=== PATIENT | male | born 1970 | race Caucasian/White ===

== ENCOUNTER 2018-07-08 18:30 | Inpatient (IN) | payer MEDICAID ==
[2018-07-08] MEDS ORDERED: Ketorolac 30 MG/ML SDV IVPUSH ONE (18:32)
[2018-07-08] MEDS ORDERED: Nitroglycerin 2% Oint 1 GM UD Packet TOP ONE (18:32)
--- NOTE | 2018-07-08 18:44 | EDM.PDOC ---
ED HPI GENERAL MEDICAL PROBLEM - General Chief Complaint: Chest Pain Stated Complaint: CHEST PAINS Time Seen by Provider: 07/08/18 18:39 Source of Information: Reports: Patient History Limitations: Reports: No Limitations - History of Present Illness INITIAL COMMENTS - FREE TEXT/NARRATIVE: HISTORY AND PHYSICAL: History of present illness: Patient is a 47-year-old male who presents to the emergency room today with complaints of midsternal chest pain for the last one and a half hours. Patient reports that he is under a lot of stress recently as he came to [place] from [place]. Moved here a month ago for work, but was laid off recently. Currently is homeless and has been wandering the streets for the past several weeks. States he has had multiple bouts of diarrhea this past week. Has noticed that the os lower extremities have been swollen. He believes this is due to the frequent and constant walking he has been doing. He denies any fever, chills, shortness of breath or cough. Denies any abdominal pain, nausea, vomiting, constipation or dysuria Medical history of hypertension. He states he is a daily drinker, 1/5th of hard alcohol daily. 1 1/2 Pack per day smoker. Review of systems: As per history of present illness and below otherwise all systems reviewed and negative. Past medical history: As per history of present illness and as reviewed below otherwise noncontributory. Surgical history: As per history of present illness and as reviewed below otherwise noncontributory. Social history: No reported history of drug or alcohol abuse. Family history: As per history of present illness and as reviewed below otherwise noncontributory. Physical exam: General: Well-developed and well-nourished 47-year-old male. Alert and oriented. Nontoxic appearing and in no acute distress. HEENT: Atraumatic, normocephalic, pupils equal and reactive bilaterally, negative for conjunctival pallor or scleral icterus, mucous membranes moist, throat clear, neck supple, nontender, trachea midline. No drooling or trismus noted. No meningeal signs Lungs: Clear to auscultation, breath sounds equal bilaterally, chest nontender. Heart: S1S2, regular rate and rhythm without overt murmur Abdomen: Soft, nondistended, nontender. Negative for masses or hepatosplenomegaly. Negative for costovertebral tenderness. Pelvis: Stable nontender. Genitourinary: Deferred. Rectal: Deferred. Skin: Intact, warm, dry. No lesions or rashes noted. Extremities: Atraumatic, moves all per self, negative for cords or calf pain. + 2 pitting edema to bilateral LE. Strong pedal pulses bilaterally. Cap refill less than 3 seconds. Neurovascular unremarkable. Neuro: Awake, alert, oriented. Cranial nerves II through XII unremarkable. Cerebellum unremarkable. Motor and sensory unremarkable throughout. Exam nonfocal. Notes: Patient had 4 baby aspirin and 2 sprays of nitroglycerin prior to arrival. Pain went from a 7/10 to a 2/10. Troponin negative. Chest x-ray within normal limits. EKG unremarkable, no previous EKG for Laws. Patient's hemoglobin is 10.4. Potassium 2.8 and an alcohol level of 296. Patient's pain is a 0 out of 10. We did discuss admission which he would prefer. Vital signs are stable. Dr. Espinoza was consulted on this case. Diagnostics: CBC, CMP, troponin, BNP, chest x-ray, EKG Therapeutics: Nitroglycerin topical, Toradol, Banana bag, K-Dur Impression: Chest Pain r/o MD Hypokalemia Diarrhea Plan: Observation to Med/Surg with telemetry Definitive disposition and diagnosis as appropriate pending reevaluation and review of above. Onset: Today Onset Date: 07/08/18 Onset Time: 17:00 Location: Reports: Chest Mid-Sternal Chest Pain Score (Numeric/FACES): 2 - Related Data Allergies Allergy/AdvReac Type Severity Reaction Status Date / Time No Known Allergies Allergy Verified 07/08/18 18:39 Home Meds: Home Meds Lisinopril [Zestril] 40 mg PO DAILY 07/08/18 [History] Past Medical History HEENT History: Reports: None Cardiovascular History: Reports: None Respiratory History: Reports: None Gastrointestinal History: Reports: None Genitourinary History: Reports: None Musculoskeletal History: Reports: None Neurological History: Reports: None Psychiatric History: Reports: None Endocrine/Metabolic History: Reports: None Hematologic History: Reports: None Immunologic History: Reports: None Oncologic (Cancer) History: Reports: None Dermatologic History: Reports: None - Infectious Disease History Infectious Disease History: Reports: None - Past Surgical History Head Surgeries/Procedures: Reports: None Social & Family History - Caffeine Use Caffeine Use: Reports: None ED ROS GENERAL - Review of Systems Review Of Systems: ROS reveals no pertinent complaints other than HPI. ED EXAM, GENERAL - Physical Exam Exam: See Below (See dictation) Course - Vital Signs Last Recorded V/S: Last Vital Signs Temp 98.4 F 07/08/18 18:32 Pulse 111 H 07/08/18 18:32 Resp 18 07/08/18 18:32 BP 130/88 07/08/18 18:32 Pulse Ox 94 L 07/08/18 18:32 - Orders/Labs/Meds Orders: Active Orders 24 hr Category Date Time Status Patient Status [ADT] Stat ADT 07/08/18 20:37 Ordered EKG Documentation Completion [RC] STAT Care 07/08/18 18:32 Active Chest 1V Frontal [CR] Stat Exams 07/08/18 18:32 Taken CULTURE STOOL + CAMPY+SHIGATOX [RM] Stat Lab 07/08/18 20:11 Ordered UA W/MICROSCOPIC [URIN] Stat Lab 07/08/18 20:12 Ordered MVI, Adult with Vitamin K [Infuvite Adult] 10 ml Med 07/08/18 20:07 Active Thiamine [Vitamin B-1] 100 mg Folic Acid 1 mg Sodium Chloride 0.9% [Normal Saline] 1,000 ml IV ONETIME Medication Orders Multivitamins/Minerals 10 ml/Thiamine HCl 100 mg/ Folic Acid 1 mg/ Sodium Chloride 1,011.2 mls @ 250 mls/hr IV ONETIME ONE Stop: 07/09/18 00:09 Labs: Laboratory Tests 07/08/18 07/08/18 07/08/18 Range/Units 18:49 18:49 18:49 WBC 4.84 (4.0-11.0) K/uL RBC 3.30 L (4.50-5.90) M/uL Hgb 10.4 L (13.0-17.0) g/dL Hct 30.3 L (38.0-50.0) % MCV 91.8 (80.0-98.0) fL MCH 31.5 (27.0-32.0) pg MCHC 34.3 (31.0-37.0) g/dL RDW Std Deviation 62.5 H (28.0-62.0) fl RDW Coeff of Michelle 19 H (11.0-15.0) % Plt Count 213 (150-400) K/uL MPV 8.70 (7.40-12.00) fL Neut % (Auto) 54.5 (48.0-80.0) % Lymph % (Auto) 32.9 (16.0-40.0) % Jerome % (Auto) 8.9 (0.0-15.0) % Eos % (Auto) 2.9 (0.0-7.0) % Baso % (Auto) 0.8 (0.0-1.5) % Neut # (Auto) 2.6 (1.4-5.7) K/uL Lymph # (Auto) 1.6 (0.6-2.4) K/uL Jerome # (Auto) 0.4 (0.0-0.8) K/uL Eos # (Auto) 0.1 (0.0-0.7) K/uL Baso # (Auto) 0.0 (0.0-0.1) K/uL Nucleated RBC % 0.0 /100WBC Nucleated RBCs # 0 K/uL Sodium 145 (136-148) mmol/L Potassium 2.8 L (3.5-5.1) mmol/L Chloride 107 (98-107) mmol/L Carbon Dioxide 25.1 (21.0-32.0) mmol/L BUN 8 (7.0-18.0) mg/dL Creatinine 0.9 (0.8-1.3) mg/dL Est Cr Clr Drug Dosing TNP Estimated GFR (MDRD) > 60.0 ml/min Glucose 93 (74-106) mg/dL Calcium 8.0 L (8.5-10.1) mg/dL Total Bilirubin 0.4 (0.2-1.0) mg/dL AST 57 H (15-37) IU/L ALT 60 (14-63) IU/L Alkaline Phosphatase 179 H (46-116) U/L Troponin I < 0.050 (0.000-0.056) ng/mL B-Natriuretic Peptide 67 (<100) PG/ML Total Protein 6.3 L (6.4-8.2) g/dL Albumin 3.2 L (3.4-5.0) g/dL Globulin 3.1 (2.0-3.5) g/dL Albumin/Globulin Ratio 1.0 L (1.3-2.8) Ethyl Alcohol mg/dL 07/08/18 Range/Units 18:49 WBC (4.0-11.0) K/uL RBC (4.50-5.90) M/uL Hgb (13.0-17.0) g/dL Hct (38.0-50.0) % MCV (80.0-98.0) fL MCH (27.0-32.0) pg MCHC (31.0-37.0) g/dL RDW Std Deviation (28.0-62.0) fl RDW Coeff of Michelle (11.0-15.0) % Plt Count (150-400) K/uL MPV (7.40-12.00) fL Neut % (Auto) (48.0-80.0) % Lymph % (Auto) (16.0-40.0) % Jerome % (Auto) (0.0-15.0) % Eos % (Auto) (0.0-7.0) % Baso % (Auto) (0.0-1.5) % Neut # (Auto) (1.4-5.7) K/uL Lymph # (Auto) (0.6-2.4) K/uL Jerome # (Auto) (0.0-0.8) K/uL Eos # (Auto) (0.0-0.7) K/uL Baso # (Auto) (0.0-0.1) K/uL Nucleated RBC % /100WBC Nucleated RBCs # K/uL Sodium (136-148) mmol/L Potassium (3.5-5.1) mmol/L Chloride (98-107) mmol/L Carbon Dioxide (21.0-32.0) mmol/L BUN (7.0-18.0) mg/dL Creatinine (0.8-1.3) mg/dL Est Cr Clr Drug Dosing Estimated GFR (MDRD) ml/min Glucose (74-106) mg/dL Calcium (8.5-10.1) mg/dL Total Bilirubin (0.2-1.0) mg/dL AST (15-37) IU/L ALT (14-63) IU/L Alkaline Phosphatase (46-116) U/L Troponin I (0.000-0.056) ng/mL B-Natriuretic Peptide (<100) PG/ML Total Protein (6.4-8.2) g/dL Albumin (3.4-5.0) g/dL Globulin (2.0-3.5) g/dL Albumin/Globulin Ratio (1.3-2.8) Ethyl Alcohol 296 mg/dL Meds: Medications Generic Name Dose Route Start Last Admin Trade Name Seanq PRN Reason Stop Dose Admin Multivitamins/Minerals 10 ml/ 1,011.2 mls @ 250 mls/hr 07/08/18 20:07 Thiamine HCl 100 mg/ Folic IV 07/09/18 00:09 Acid 1 mg/ Sodium Chloride ONETIME ONE Discontinued Medications Generic Name Dose Route Start Last Admin Trade Name Freq PRN Reason Stop Dose Admin Ketorolac Tromethamine 30 mg 07/08/18 18:32 07/08/18 18:46 Toradol IVPUSH 07/08/18 18:33 30 mg ONETIME ONE Administration Nitroglycerin 1 gm 07/08/18 18:32 Nitro-Bid 2% TOP 07/08/18 18:33 ONETIME ONE Potassium Chloride 40 meq 07/08/18 20:07 07/08/18 20:20 Klor-Con M20 PO 07/08/18 20:08 40 meq ONETIME ONE Administration Departure - Departure Time of Disposition: 20:39 Disposition: Refer to Observation Clinical Impression: Hypokalemia Chest pain Qualifiers: Chest pain type: unspecified Qualified Code(s): R07.9 - Chest pain, unspecified Diarrhea Qualifiers: Diarrhea type: unspecified type Qualified Code(s): R19.7 - Diarrhea, unspecified Instructions: Chest Wall Pain, [id number] Forms: ED Department Discharge - My Orders Last 24 Hours: My Active Orders 07/08/18 18:32 EKG Documentation Completion [RC] STAT Chest 1V Frontal [CR] Stat 07/08/18 20:07 MVI, Adult with Vitamin K [Infuvite Adult] 10 ml Thiamine [Vitamin B-1] 100 mg Folic Acid 1 mg Sodium Chloride 0.9% [Normal Saline] 1,000 ml IV ONETIME 07/08/18 20:11 CULTURE STOOL + CAMPY+SHIGATOX [RM] Stat 07/08/18 20:12 UA W/MICROSCOPIC [URIN] Stat 07/08/18 20:37 Patient Status [ADT] Stat - Assessment/Plan Last 24 Hours: My Active Orders 07/08/18 18:32 EKG Documentation Completion [RC] STAT Chest 1V Frontal [CR] Stat 07/08/18 20:07 MVI, Adult with Vitamin K [Infuvite Adult] 10 ml Thiamine [Vitamin B-1] 100 mg Folic Acid 1 mg Sodium Chloride 0.9% [Normal Saline] 1,000 ml IV ONETIME 07/08/18 20:11 CULTURE STOOL + CAMPY+SHIGATOX [RM] Stat 07/08/18 20:12 UA W/MICROSCOPIC [URIN] Stat 07/08/18 20:37 Patient Status [ADT] Stat
[2018-07-08 19:19] LABS: CHLORIDE,CL 107 mmol/L (98-107); SODIUM,NA 145 mmol/L (136-148)
[2018-07-08] MEDS ORDERED: MVI, Adult with Vitamin K 10 ML, Thiamine 100 MG, Folic Acid 1 MG in Sodium Chloride 0.... IV ONE ×4 (20:07)
[2018-07-08] MEDS ORDERED: Potassium Chloride 20 MEQ Tab.ER PO ONE ×2 (20:07→23:05)
[2018-07-08] MEDS ORDERED: Folic Acid 1 MG Tab PO ONE (22:54)
[2018-07-08] MEDS ORDERED: Thiamine 100 MG Tab PO ONE (22:54)
[2018-07-08] MEDS ORDERED: LORazepam 2 MG/ML SDV IVPUSH PRN (23:02)
[2018-07-08] MEDS ORDERED: Magnesium Sulfate/Water 2 GM in Premix Bag 1 BAG IV ONE (23:25)
[2018-07-09 07:14] LABS: CHLORIDE,CL 102 mmol/L (98-107); SODIUM,NA 138 mmol/L (136-148)
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
[2018-07-09] MEDS ORDERED: Magnesium Sulfate/Water 2 GM in Premix Bag 1 BAG IV ONE (07:44)
[2018-07-09] MEDS ORDERED: Potassium Chloride 20 MEQ Tab.ER PO ONE (07:44)
[2018-07-09] MEDS ORDERED: LORazepam 1 MG Tab PO PRN (07:58)
[2018-07-09] MEDS: Enoxaparin 40 MG/0.4 ML Syringe SUBCUT SCH (08:17)
[2018-07-09] MEDS: LORazepam 2 MG/ML SDV IVPUSH PRN (09:55)
--- NOTE | 2018-07-09 10:45 | CR ---
EXAM DATE: 07/08/18 PATIENT'S AGE: 47 Patient: KEKE VELASCO Facility: [place], [place] Site . Site : 1970 Study: XRay Chest [id number] 7:22:42 PM Ordering Physician: Doctor Luna Final Report: INDICATION: Chest pain TECHNIQUE: Chest radiograph 1 views on 2 films COMPARISON: None FINDINGS: Mediastinum: The mediastinum is normal in appearance. The heart silhouette is normal in size and morphology. Lung: Both lungs are unremarkable in appearance. No sign of pleural effusion seen. No pneumothorax is identified. Musculoskeletal: Unremarkable for age. IMPRESSION: 1. No acute cardiopulmonary disease is seen. Dictated by: Drake Campos MD @ 07/08/2018 19:30:34 (Electronic Signature) Report Signed by Proxy. [facility]ITAL[facility]
[2018-07-09] MEDS: Nicotine 14 MG/24 Hr Patch TRDERM SCH (11:38)
[2018-07-09] MEDS: Sodium Chloride 0.9% 1,000 ML IV SCH ×2 (11:39→21:01)
[2018-07-09] MEDS: Vancomycin 25 MG/ML Compounding Kit PO SCH ×3 (16:09→23:39)
[2018-07-09] MEDS: Acetaminophen 325 MG Tab PO PRN (17:38)
[2018-07-09] MEDS: Multivitamin Tab PO SCH (21:02)
[2018-07-09] MEDS: Folic Acid 1 MG Tab PO SCH (21:03)
[2018-07-09] MEDS: Thiamine 100 MG Tab PO SCH (21:03)
[2018-07-09] MEDS ORDERED: Ondansetron 4 MG/2 ML SDV IVPUSH PRN (23:48)
[2018-07-10] MEDS: Acetaminophen 325 MG Tab PO PRN ×3 (00:27→18:18)
[2018-07-10] MEDS: Sodium Chloride 0.9% 1,000 ML IV SCH ×2 (05:24→13:28)
[2018-07-10] MEDS: Vancomycin 25 MG/ML Compounding Kit PO SCH ×3 (05:35→18:17)
[2018-07-10 05:51] LABS: CHLORIDE,CL 106 mmol/L (98-107); SODIUM,NA 141 mmol/L (136-148)
--- NOTE | 2018-07-10 09:14 | PCM.PN ---
- General Info Date of Service: 07/10/18 Subjective Update: The patient is a 47-year-old male who was originally admitted for chest pain and ACS rule out. Since admission, he has not had any episodes of chest pain. He also has been a daily drinker and is requesting detox. He is not showing any signs of withdrawal yet. The patient was having multiple episodes of diarrhea daily, so a stool studies and C. difficile were performed yesterday. The patient is positive for C. difficile has been started on oral antibiotics. The patient is complaining of lower extremitiy edema. He states he is eating, drinking, and going to the bathroom without difficulty. He is still having multiple episodes of diarrhea daily. Denied any blood in stool. Denies any chest pain, shortness of breath, or abdominal pain. - Review of Systems General: Reports: No Symptoms HEENT: Reports: No Symptoms Pulmonary: Reports: No Symptoms Cardiovascular: Reports: No Symptoms Gastrointestinal: Reports: Diarrhea. Denies: Abdominal Pain, Constipation, Decreased Appetite, Nausea, Vomiting Genitourinary: Reports: No Symptoms Musculoskeletal: Reports: Leg Pain Skin: Reports: No Symptoms Neurological: Reports: No Symptoms Psychiatric: Reports: No Symptoms - Patient Data Vitals - Most Recent: Last Vital Signs Temp 97.9 F 07/10/18 04:00 Pulse 72 07/10/18 04:00 Resp 18 07/10/18 04:00 BP 139/83 07/10/18 04:00 Pulse Ox 95 07/10/18 04:00 Weight - Most Recent: 92.079 kg I&O - Last 24 Hours: Intake & Output 07/09/18 07/10/18 07/10/18 22:59 06:59 14:59 Intake Total 3100 1040 Output Total 950 1380 Balance 2150 -340 Lab Results Last 24 Hours: Laboratory Results - last 24 hr 07/09/18 07/10/18 07/10/18 Range/Units 12:25 05:00 05:00 WBC 4.79 (4.0-11.0) K/uL RBC 2.84 L (4.50-5.90) M/uL Hgb 8.8 L (13.0-17.0) g/dL Hct 26.8 L (38.0-50.0) % MCV 94.4 (80.0-98.0) fL MCH 31.0 (27.0-32.0) pg MCHC 32.8 (31.0-37.0) g/dL RDW Std Deviation 63.1 H (28.0-62.0) fl RDW Coeff of Michelle 18 H (11.0-15.0) % Plt Count 151 (150-400) K/uL MPV 9.80 (7.40-12.00) fL Neut % (Auto) 61.6 (48.0-80.0) % Lymph % (Auto) 28.6 (16.0-40.0) % Davidson % (Auto) 5.8 (0.0-15.0) % Eos % (Auto) 3.8 (0.0-7.0) % Baso % (Auto) 0.2 (0.0-1.5) % Neut # (Auto) 3.0 (1.4-5.7) K/uL Lymph # (Auto) 1.4 (0.6-2.4) K/uL Davidson # (Auto) 0.3 (0.0-0.8) K/uL Eos # (Auto) 0.2 (0.0-0.7) K/uL Baso # (Auto) 0.0 (0.0-0.1) K/uL Nucleated RBC % 0.0 /100WBC Nucleated RBCs # 0 K/uL Sodium 141 (136-148) mmol/L Potassium 3.7 (3.5-5.1) mmol/L Chloride 106 (98-107) mmol/L Carbon Dioxide 24.7 (21.0-32.0) mmol/L BUN 11 (7.0-18.0) mg/dL Creatinine 0.8 (0.8-1.3) mg/dL Est Cr Clr Drug Dosing 137.16 mL/min Estimated GFR (MDRD) > 60.0 ml/min Glucose 97 (74-106) mg/dL Calcium 8.2 L (8.5-10.1) mg/dL Magnesium 2.1 (1.8-2.4) mg/dL Total Bilirubin 0.5 (0.2-1.0) mg/dL AST 66 H (15-37) IU/L ALT 59 (14-63) IU/L Alkaline Phosphatase 147 H (46-116) U/L Total Protein 5.4 L (6.4-8.2) g/dL Albumin 2.7 L (3.4-5.0) g/dL Globulin 2.7 (2.0-3.5) g/dL Albumin/Globulin Ratio 1.0 L (1.3-2.8) Michel Results Last 24 Hours: Microbiology 07/09/18 12:15 Clostridium difficile Toxin A & B - Final Stool / Feces Positive C. Diff Antigen Stool for WBCs - Final NEGATIVE FOR WBC'S 07/09/18 12:15 Campylobacter Antigen Assay - Final Stool / Feces NEGATIVE [facility] Med Orders - Current: Current Medications Acetaminophen (Tylenol) 650 mg PO Q4H PRN PRN Reason: Pain (Mild 1-3)/fever Last Admin: 07/10/18 00:27 Dose: 650 mg Enoxaparin Sodium (Lovenox) 40 mg SUBCUT Q24H [facility] Last Admin: 07/09/18 08:17 Dose: 40 mg Folic Acid (Folic Acid) 1 mg PO BEDTIME [facility]AVIN Last Admin: 07/09/18 21:03 Dose: 1 mg Sodium Chloride (Normal Saline) 1,000 mls @ 125 mls/hr IV ASDIRECTED [facility] Last Admin: 07/10/18 05:24 Dose: 125 mls/hr Lorazepam (Ativan) 0 mg PO Q4H PRN; Protocol PRN Reason: Withdrawal Symptoms Lorazepam (Ativan) 0 mg IVPUSH Q4H PRN; Protocol PRN Reason: Withdrawal Symptoms Last Admin: 07/09/18 09:55 Dose: 1 mg Multivitamins/Minerals/Vitamin C (Tab-A-Marva) 1 tab PO BEDTIME [facility]IN Last Admin: 07/09/18 21:02 Dose: 1 tab Nicotine (Habitrol) 14 mg TRDERM Q24H [facility] Last Admin: 07/09/18 11:38 Dose: 14 mg Ondansetron HCl (Zofran) 4 mg IVPUSH Q3H PRN PRN Reason: Nausea Last Admin: 07/10/18 00:26 Dose: 4 mg Thiamine HCl (Vitamin B-1) 100 mg PO BEDTIME BHAVIN Last Admin: 07/09/18 21:03 Dose: 100 mg Vancomycin HCl (Pharmacy To Dose - Vancomycin) 1 dose .XX ASDIRECTED [facility] Vancomycin HCl (First-Vancomycin 25 Compounding Kit) 125 mg PO QID [facility]IN Last Admin: 07/10/18 05:35 Dose: 5 ml Discontinued Medications Folic Acid (Folic Acid) 1 mg PO ONETIME ONE Stop: 07/08/18 22:55 Last Admin: 07/08/18 23:27 Dose: 1 mg Multivitamins/Minerals 10 ml/Thiamine HCl 100 mg/ Folic Acid 1 mg/ Sodium Chloride 1,011.2 mls @ 250 mls/hr IV ONETIME ONE Stop: 07/09/18 00:09 Last Admin: 07/08/18 21:16 Dose: 250 mls/hr Magnesium Sulfate 2 gm/ Premix 50 mls @ 50 mls/hr IV ONETIME ONE Stop: 07/09/18 00:24 Last Admin: 07/08/18 23:44 Dose: 50 mls/hr Magnesium Sulfate 2 gm/ Premix 50 mls @ 50 mls/hr IV ONETIME ONE Stop: 07/09/18 08:43 Last Admin: 07/09/18 08:17 Dose: 50 mls/hr Vancomycin HCl 1,500 mg/ (Sodium Chloride) 500 mls @ 1,000 mls/hr IV Q8H [facility] Vancomycin HCl 1,500 mg/ (Sodium Chloride) 500 mls @ 250 mls/hr IV Q8H [facility] Last Admin: 07/09/18 15:19 Dose: 250 mls/hr Ketorolac Tromethamine (Toradol) 30 mg IVPUSH ONETIME ONE Stop: 07/08/18 18:33 Last Admin: 07/08/18 18:46 Dose: 30 mg Lorazepam (Ativan) 1 mg IVPUSH Q4H PRN; Protocol PRN Reason: Anxiety Last Admin: 07/08/18 23:36 Dose: 1 mg Nitroglycerin (Nitro-Bid 2%) 1 gm TOP ONETIME ONE Stop: 07/08/18 18:33 Last Admin: 07/08/18 21:15 Dose: Not Given Potassium Chloride (Klor-Con M20) 40 meq PO ONETIME ONE Stop: 07/08/18 20:08 Last Admin: 07/08/18 20:20 Dose: 40 meq Potassium Chloride (Klor-Con M20) 40 meq PO ONETIME ONE Stop: 07/08/18 23:06 Last Admin: 07/08/18 23:27 Dose: 40 meq Potassium Chloride (Klor-Con M20) 40 meq PO ONETIME ONE Stop: 07/09/18 07:45 Last Admin: 07/09/18 08:18 Dose: 40 meq Thiamine HCl (Vitamin B-1) 100 mg PO ONETIME ONE Stop: 07/08/18 22:55 Last Admin: 07/08/18 23:27 Dose: 100 mg - Exam General: Alert, Oriented, Cooperative, No Acute Distress Lungs: Normal Respiratory Effort, Wheezing Cardiovascular: Regular Rate, Regular Rhythm GI/Abdominal Exam: Normal Bowel Sounds, Soft, Non-Tender Extremities: Other (edema bilaterally up to knees) Skin: Warm, Dry Neurological: No New Focal Deficit Psy/Mental Status: Alert, Normal Affect, Normal Mood - Problem List Review Problem List Initiated/Reviewed/Updated: Yes - My Orders Last 24 Hours: My Active Orders 07/09/18 10:45 Sodium Chloride 0.9% [Normal Saline] 1,000 ml IV ASDIRECTED 07/09/18 11:00 Nicotine [Habitrol] 14 mg TRDERM Q24H 07/09/18 12:15 CULTURE STOOL + CAMPY+SHIGATOX [RM] Routine 07/09/18 15:00 Vancomycin Pharmacy to Dose [Pharmacy to Dose - Vancomycin] 1 dose .XX ASDIRECTED 07/09/18 19:23 Admission Status [Patient Status] [ADT] Routine 07/09/18 21:00 Folic Acid 1 mg PO BEDTIME Multivitamins [Tab-A-Marva] 1 tab PO BEDTIME Thiamine [Vitamin B-1] 100 mg PO BEDTIME - Plan Plan:: 1. Diarrhea secondary to C.diff infection- continue oral vancomycin 125 mg qid. Other stool studies still pending. Will add hemoccult testing. 2. Alcohol Intoxication with impending withdrawal- CIWA and Ativan protocol. Continue on multivitamin, folic acid, and thiamine. Continue IV fluids. 3. Hypokalemia- resolved 4. Hypomagnesemia-resolved
[2018-07-10] MEDS: Nicotine 14 MG/24 Hr Patch TRDERM SCH (10:28)
[2018-07-10] MEDS: Enoxaparin 40 MG/0.4 ML Syringe SUBCUT SCH (10:28)
[2018-07-10] MEDS: Pantoprazole 40 MG Vial IVPUSH SCH ×2 (18:16→20:57)
[2018-07-10] MEDS ORDERED: traMADol 50 MG Tab PO ONE (18:51)
[2018-07-10] MEDS: Thiamine 100 MG Tab PO SCH (20:51)
[2018-07-10] MEDS: Melatonin 3 MG Tab PO SCH (20:51)
[2018-07-10] MEDS: Multivitamin Tab PO SCH (20:51)
[2018-07-10] MEDS: Folic Acid 1 MG Tab PO SCH (20:51)
[2018-07-10] MEDS ORDERED: Pantoprazole 40 MG Vial IVPUSH SCH (21:00)
[2018-07-11] MEDS: Acetaminophen 325 MG Tab PO PRN ×3 (00:49→23:04)
[2018-07-11] MEDS: Vancomycin 25 MG/ML Compounding Kit PO SCH ×4 (00:50→17:52)
[2018-07-11 05:41] LABS: CHLORIDE,CL 106 mmol/L (98-107); SODIUM,NA 140 mmol/L (136-148)
--- NOTE | 2018-07-11 08:28 | PCM.PN ---
- General Info Date of Service: 07/11/18 Subjective Update: The patient is a 47 year old male admitted for detox and was found to be positive for C.diff. He has not needed any ativan for withdrawals yet. He is having 10+ bowel movements a day due to his C.diff. He did report one episode of black stool yesterday and was hemoccult positive. He has not had any further episode of black stools or bright red blood per rectum. His hemoglobin was stable overnight. He denies issues eating or drinking. He denies chest pain , shortness of breath, or abdominal pain. - Review of Systems General: Reports: No Symptoms HEENT: Reports: No Symptoms Pulmonary: Reports: No Symptoms Cardiovascular: Reports: No Symptoms Gastrointestinal: Reports: Diarrhea. Denies: Abdominal Pain, Nausea, Vomiting Genitourinary: Reports: No Symptoms Musculoskeletal: Reports: Leg Pain Skin: Reports: No Symptoms Neurological: Reports: No Symptoms Psychiatric: Reports: No Symptoms - Patient Data Vitals - Most Recent: Last Vital Signs Temp 97.2 F 07/11/18 06:21 Pulse 82 07/11/18 06:21 Resp 20 07/11/18 06:21 BP 177/98 H 07/11/18 06:21 Pulse Ox 97 07/11/18 06:21 Weight - Most Recent: 92.079 kg I&O - Last 24 Hours: Intake & Output 07/10/18 07/11/18 07/11/18 22:59 06:59 14:59 Intake Total 3589 1380 Output Total 880 350 Balance 2709 1030 Lab Results Last 24 Hours: Laboratory Results - last 24 hr 07/10/18 07/11/18 07/11/18 Range/Units 18:01 04:50 04:50 WBC 6.76 (4.0-11.0) K/uL RBC 2.89 L (4.50-5.90) M/uL Hgb 8.9 L 9.0 L (13.0-17.0) g/dL Hct 27.1 L 27.7 L (38.0-50.0) % MCV 95.8 (80.0-98.0) fL MCH 31.1 (27.0-32.0) pg MCHC 32.5 (31.0-37.0) g/dL RDW Std Deviation 63.3 H (28.0-62.0) fl RDW Coeff of Michelle 18 H (11.0-15.0) % Plt Count 146 L (150-400) K/uL MPV 9.70 (7.40-12.00) fL Neut % (Auto) 72.6 (48.0-80.0) % Lymph % (Auto) 18.3 (16.0-40.0) % Quay % (Auto) 5.0 (0.0-15.0) % Eos % (Auto) 4.0 (0.0-7.0) % Baso % (Auto) 0.1 (0.0-1.5) % Neut # (Auto) 4.9 (1.4-5.7) K/uL Lymph # (Auto) 1.2 (0.6-2.4) K/uL Quay # (Auto) 0.3 (0.0-0.8) K/uL Eos # (Auto) 0.3 (0.0-0.7) K/uL Baso # (Auto) 0.0 (0.0-0.1) K/uL Nucleated RBC % 0.0 /100WBC Nucleated RBCs # 0 K/uL Sodium 140 (136-148) mmol/L Potassium 3.9 (3.5-5.1) mmol/L Chloride 106 (98-107) mmol/L Carbon Dioxide 25.5 (21.0-32.0) mmol/L BUN 11 (7.0-18.0) mg/dL Creatinine 0.9 (0.8-1.3) mg/dL Est Cr Clr Drug Dosing 121.92 mL/min Estimated GFR (MDRD) > 60.0 ml/min Glucose 93 (74-106) mg/dL Calcium 8.3 L (8.5-10.1) mg/dL Iron (50-175) ug/dL TIBC (250-450) ug/dL % Saturation (20-55) % Ferritin (26-388) ng/mL Total Bilirubin 0.6 (0.2-1.0) mg/dL AST 48 H (15-37) IU/L ALT 63 (14-63) IU/L Alkaline Phosphatase 150 H (46-116) U/L Total Protein 5.7 L (6.4-8.2) g/dL Albumin 2.8 L (3.4-5.0) g/dL Globulin 2.9 (2.0-3.5) g/dL Albumin/Globulin Ratio 1.0 L (1.3-2.8) 07/11/18 Range/Units 07:30 WBC (4.0-11.0) K/uL RBC (4.50-5.90) M/uL Hgb (13.0-17.0) g/dL Hct (38.0-50.0) % MCV (80.0-98.0) fL MCH (27.0-32.0) pg MCHC (31.0-37.0) g/dL RDW Std Deviation (28.0-62.0) fl RDW Coeff of Michelle (11.0-15.0) % Plt Count (150-400) K/uL MPV (7.40-12.00) fL Neut % (Auto) (48.0-80.0) % Lymph % (Auto) (16.0-40.0) % Quay % (Auto) (0.0-15.0) % Eos % (Auto) (0.0-7.0) % Baso % (Auto) (0.0-1.5) % Neut # (Auto) (1.4-5.7) K/uL Lymph # (Auto) (0.6-2.4) K/uL Quay # (Auto) (0.0-0.8) K/uL Eos # (Auto) (0.0-0.7) K/uL Baso # (Auto) (0.0-0.1) K/uL Nucleated RBC % /100WBC Nucleated RBCs # K/uL Sodium (136-148) mmol/L Potassium (3.5-5.1) mmol/L Chloride (98-107) mmol/L Carbon Dioxide (21.0-32.0) mmol/L BUN (7.0-18.0) mg/dL Creatinine (0.8-1.3) mg/dL Est Cr Clr Drug Dosing mL/min Estimated GFR (MDRD) ml/min Glucose (74-106) mg/dL Calcium (8.5-10.1) mg/dL Iron 30 L (50-175) ug/dL TIBC 193 L (250-450) ug/dL % Saturation 15.54 L (20-55) % Ferritin 191 (26-388) ng/mL Total Bilirubin (0.2-1.0) mg/dL AST (15-37) IU/L ALT (14-63) IU/L Alkaline Phosphatase (46-116) U/L Total Protein (6.4-8.2) g/dL Albumin (3.4-5.0) g/dL Globulin (2.0-3.5) g/dL Albumin/Globulin Ratio (1.3-2.8) Michel Results Last 24 Hours: Microbiology 07/09/18 12:15 Campylobacter Antigen Assay - Final Stool / Feces NEGATIVE [facility]LO[facility] AG - Final NEGATIVE FOR SHIGA TOXIN 1 - Final NEGATIVE FOR SHIGA TOXIN 2 07/10/18 11:23 Stool Occult Blood (MICHEL) - Final Stool / Feces POSITIVE OCCULT BLOOD Med Orders - Current: Current Medications Acetaminophen (Tylenol) 650 mg PO Q4H PRN PRN Reason: Pain (Mild 1-3)/fever Last Admin: 07/11/18 00:49 Dose: 650 mg Folic Acid (Folic Acid) 1 mg PO BEDTIME BHAVIN Last Admin: 07/10/18 20:51 Dose: 1 mg Lisinopril (Prinivil) 40 mg PO DAILY [facility] Lorazepam (Ativan) 0 mg PO Q4H PRN; Protocol PRN Reason: Withdrawal Symptoms Lorazepam (Ativan) 0 mg IVPUSH Q4H PRN; Protocol PRN Reason: Withdrawal Symptoms Last Admin: 07/09/18 09:55 Dose: 1 mg Melatonin (Melatonin) 9 mg PO BEDTIME [facility]AVIN Last Admin: 07/10/18 20:51 Dose: 9 mg Multivitamins/Minerals/Vitamin C (Tab-A-Marva) 1 tab PO BEDTIME [facility]IN Last Admin: 07/10/18 20:51 Dose: 1 tab Nicotine (Habitrol) 14 mg TRDERM Q24H [facility] Last Admin: 07/10/18 10:28 Dose: 14 mg Ondansetron HCl (Zofran) 4 mg IVPUSH Q3H PRN PRN Reason: Nausea Last Admin: 07/10/18 00:26 Dose: 4 mg Pantoprazole Sodium (Protonix Iv) 40 mg IVPUSH Q12HR [facility] Last Admin: 07/10/18 20:57 Dose: 40 mg Thiamine HCl (Vitamin B-1) 100 mg PO BEDTIME [facility] Last Admin: 07/10/18 20:51 Dose: 100 mg Vancomycin HCl (Pharmacy To Dose - Vancomycin) 1 dose .XX ASDIRECTED [facility] Vancomycin HCl (First-Vancomycin 25 Compounding Kit) 125 mg PO QID [facility] Last Admin: 07/11/18 05:20 Dose: 5 ml Discontinued Medications Enoxaparin Sodium (Lovenox) 40 mg SUBCUT Q24H [facility] Last Admin: 07/10/18 10:28 Dose: 40 mg Folic Acid (Folic Acid) 1 mg PO ONETIME ONE Stop: 07/08/18 22:55 Last Admin: 07/08/18 23:27 Dose: 1 mg Multivitamins/Minerals 10 ml/Thiamine HCl 100 mg/ Folic Acid 1 mg/ Sodium Chloride 1,011.2 mls @ 250 mls/hr IV ONETIME ONE Stop: 07/09/18 00:09 Last Admin: 07/08/18 21:16 Dose: 250 mls/hr Magnesium Sulfate 2 gm/ Premix 50 mls @ 50 mls/hr IV ONETIME ONE Stop: 07/09/18 00:24 Last Admin: 07/08/18 23:44 Dose: 50 mls/hr Magnesium Sulfate 2 gm/ Premix 50 mls @ 50 mls/hr IV ONETIME ONE Stop: 07/09/18 08:43 Last Admin: 07/09/18 08:17 Dose: 50 mls/hr Sodium Chloride (Normal Saline) 1,000 mls @ 125 mls/hr IV ASDIRECTED [facility] Last Admin: 07/10/18 13:28 Dose: 125 mls/hr Vancomycin HCl 1,500 mg/ (Sodium Chloride) 500 mls @ 1,000 mls/hr IV Q8H [facility] Vancomycin HCl 1,500 mg/ (Sodium Chloride) 500 mls @ 250 mls/hr IV Q8H [facility] Last Admin: 07/09/18 15:19 Dose: 250 mls/hr Ketorolac Tromethamine (Toradol) 30 mg IVPUSH ONETIME ONE Stop: 07/08/18 18:33 Last Admin: 07/08/18 18:46 Dose: 30 mg Lorazepam (Ativan) 1 mg IVPUSH Q4H PRN; Protocol PRN Reason: Anxiety Last Admin: 07/08/18 23:36 Dose: 1 mg Nitroglycerin (Nitro-Bid 2%) 1 gm TOP ONETIME ONE Stop: 07/08/18 18:33 Last Admin: 07/08/18 21:15 Dose: Not Given Pantoprazole Sodium (Protonix Iv) 40 mg IVPUSH Q12HR [facility] Potassium Chloride (Klor-Con M20) 40 meq PO ONETIME ONE Stop: 07/08/18 20:08 Last Admin: 07/08/18 20:20 Dose: 40 meq Potassium Chloride (Klor-Con M20) 40 meq PO ONETIME ONE Stop: 07/08/18 23:06 Last Admin: 07/08/18 23:27 Dose: 40 meq Potassium Chloride (Klor-Con M20) 40 meq PO ONETIME ONE Stop: 07/09/18 07:45 Last Admin: 07/09/18 08:18 Dose: 40 meq Thiamine HCl (Vitamin B-1) 100 mg PO ONETIME ONE Stop: 07/08/18 22:55 Last Admin: 07/08/18 23:27 Dose: 100 mg Tramadol HCl (Ultram) 50 mg PO ONETIME ONE Stop: 07/10/18 18:52 Last Admin: 07/10/18 19:24 Dose: 50 mg - Exam General: Alert, Oriented, Cooperative Lungs: Clear to Auscultation, Normal Respiratory Effort Cardiovascular: Regular Rate, Regular Rhythm GI/Abdominal Exam: Normal Bowel Sounds, Soft, Non-Tender, No Distention Skin: Warm, Dry Neurological: No New Focal Deficit Psy/Mental Status: Alert, Normal Affect, Normal Mood - Problem List Review Problem List Initiated/Reviewed/Updated: Yes - My Orders Last 24 Hours: My Active Orders 07/10/18 18:00 Pantoprazole [ProTONIX IV] 40 mg IVPUSH Q12HR 07/10/18 21:00 Melatonin 9 mg PO BEDTIME 07/11/18 09:00 Lisinopril [Prinivil] 40 mg PO DAILY - Plan Plan:: 1. Diarrhea secondary to C.diff infection continue oral vancomycin 125 mg qid. His stool was negative for Shiga/camp. Will give imodium to help control number of bowel movements. 2. Anemia with positive hemoccult- The patient reported one episode of black stool yesterday. He has since not had any black stool or bright red blood per rectum. On visual examination, his stool is loose and brown. He was started on PPI IV BID yesterday. His hemoglobin was stable overnight. When he was admitted he was anemic with a hemoglobin of 10.4, the next morning his hemoglobin dropped to 8.8, he was given IV fluids. Likely cause is gastritis from alcohol intake. 3. Alcohol Intoxication with impending withdrawal- CIWA and Ativan protocol. Continue on multivitamin, folic acid, and thiamine. Upon discharge we will speak to pharmacy about providing him with his antibiotics. Patient is homeless, not currently employed and can't afford to pay for his prescriptions.
[2018-07-11] MEDS: Folic Acid 1 MG Tab PO SCH (08:52)
[2018-07-11] MEDS: Multivitamin Tab PO SCH (08:52)
[2018-07-11] MEDS: Thiamine 100 MG Tab PO SCH (08:52)
[2018-07-11] MEDS: Lisinopril 10 MG Tab PO SCH (08:53)
[2018-07-11] MEDS: Pantoprazole 40 MG Vial IVPUSH SCH ×2 (08:53→20:55)
[2018-07-11] MEDS: Nicotine 14 MG/24 Hr Patch TRDERM SCH (10:59)
[2018-07-11] MEDS: Loperamide 2 MG Cap PO PRN ×2 (11:55→20:55)
[2018-07-12] MEDS: Melatonin 3 MG Tab PO SCH ×2 (00:13→20:39)
[2018-07-12] MEDS: Vancomycin 25 MG/ML Compounding Kit PO SCH ×4 (00:14→18:13)
[2018-07-12 07:27] LABS: CHLORIDE,CL 103 mmol/L (98-107); SODIUM,NA 138 mmol/L (136-148)
[2018-07-12] MEDS: Multivitamin Tab PO SCH (08:15)
[2018-07-12] MEDS: Folic Acid 1 MG Tab PO SCH (08:15)
[2018-07-12] MEDS: Pantoprazole 40 MG Vial IVPUSH SCH ×2 (08:15→20:40)
[2018-07-12] MEDS: Lisinopril 10 MG Tab PO SCH (08:15)
[2018-07-12] MEDS: Thiamine 100 MG Tab PO SCH (08:15)
--- NOTE | 2018-07-12 08:36 | PCM.PN ---
- General Info Date of Service: 07/12/18 Subjective Update: The patient is a 47 year old male admitted for detox and C.diff. The patient has not shown signs of withdrawal and has not required ativan for a number of days. The patient does have C.diff that is being treated. He is still having 9 -10 bowel movements a day, no black/bloody movements, most are brown with mucous. He received imodium yesterday without much relief. Patient complained of sore throat yesterday, strep test was done and was negative. The patient is homeless, so CM gave him some information about resources when he is discharged. He was given information about [facility] and local [facility]. CM also stated that pharmacy will be able to provide him prescriptions when he leaves. - Review of Systems General: Reports: No Symptoms HEENT: Reports: No Symptoms Pulmonary: Reports: No Symptoms Cardiovascular: Reports: No Symptoms Gastrointestinal: Reports: Diarrhea. Denies: Abdominal Pain, Constipation, Nausea, Vomiting Genitourinary: Reports: No Symptoms Musculoskeletal: Reports: Leg Pain Skin: Reports: No Symptoms Neurological: Reports: No Symptoms Psychiatric: Reports: No Symptoms - Patient Data Vitals - Most Recent: Last Vital Signs Temp 99.7 F 07/12/18 05:38 Pulse 80 07/12/18 05:38 Resp 20 07/12/18 05:38 BP 154/106 H 07/12/18 08:15 Pulse Ox 97 07/12/18 05:38 Weight - Most Recent: 92.079 kg I&O - Last 24 Hours: Intake & Output 07/11/18 07/12/18 07/12/18 22:59 06:59 14:59 Intake Total 2140 1700 Output Total 1150 1000 Balance 990 700 Lab Results Last 24 Hours: Laboratory Results - last 24 hr 07/11/18 07/12/18 07/12/18 Range/Units 16:55 06:08 06:08 WBC 5.22 (4.0-11.0) K/uL RBC 2.99 L (4.50-5.90) M/uL Hgb 9.7 L 9.4 L (13.0-17.0) g/dL Hct 29.2 L 28.4 L (38.0-50.0) % MCV 95.0 (80.0-98.0) fL MCH 31.4 (27.0-32.0) pg MCHC 33.1 (31.0-37.0) g/dL RDW Std Deviation 62.5 H (28.0-62.0) fl RDW Coeff of Michelle 18 H (11.0-15.0) % Plt Count 158 (150-400) K/uL MPV 10.10 (7.40-12.00) fL Neut % (Auto) 76.2 (48.0-80.0) % Lymph % (Auto) 13.6 L (16.0-40.0) % [place] % (Auto) 6.9 (0.0-15.0) % Eos % (Auto) 2.9 (0.0-7.0) % Baso % (Auto) 0.4 (0.0-1.5) % Neut # (Auto) 4.0 (1.4-5.7) K/uL Lymph # (Auto) 0.7 (0.6-2.4) K/uL [place] # (Auto) 0.4 (0.0-0.8) K/uL Eos # (Auto) 0.2 (0.0-0.7) K/uL Baso # (Auto) 0.0 (0.0-0.1) K/uL Nucleated RBC % 0.0 /100WBC Nucleated RBCs # 0 K/uL Sodium 138 (136-148) mmol/L Potassium 3.8 (3.5-5.1) mmol/L Chloride 103 (98-107) mmol/L Carbon Dioxide 26.7 (21.0-32.0) mmol/L BUN 9 (7.0-18.0) mg/dL Creatinine 0.7 L (0.8-1.3) mg/dL Est Cr Clr Drug Dosing 156.76 mL/min Estimated GFR (MDRD) > 60.0 ml/min Glucose 110 H (74-106) mg/dL Calcium 8.8 (8.5-10.1) mg/dL Total Bilirubin 0.6 (0.2-1.0) mg/dL AST 25 (15-37) IU/L ALT 46 (14-63) IU/L Alkaline Phosphatase 141 H (46-116) U/L Total Protein 6.0 L (6.4-8.2) g/dL Albumin 2.8 L (3.4-5.0) g/dL Globulin 3.2 (2.0-3.5) g/dL Albumin/Globulin Ratio 0.9 L (1.3-2.8) Michel Results Last 24 Hours: Microbiology 07/11/18 22:10 Group A Streptococcus Rapid Screen - Final Throat NEGATIVE STREP A SCREEN 07/09/18 12:15 Stool Culture - Final Stool / Feces NO SALMONELLA, SHIGELLA,OR E.COLI O157 ISOLATED Campylobacter Antigen Assay - Final NEGATIVE CAMPYLOBACTER AG - Final NEGATIVE FOR SHIGA TOXIN 1 - Final NEGATIVE FOR SHIGA TOXIN 2 Med Orders - Current: Current Medications Acetaminophen (Tylenol) 650 mg PO Q4H PRN PRN Reason: Pain (Mild 1-3)/fever Last Admin: 07/11/18 23:04 Dose: 650 mg Folic Acid (Folic Acid) 1 mg PO DAILY [facility] Last Admin: 07/12/18 08:15 Dose: 1 mg Lisinopril (Prinivil) 40 mg PO DAILY [facility] Last Admin: 07/12/18 08:15 Dose: 40 mg Loperamide HCl (Imodium) 2 mg PO Q6H PRN PRN Reason: Diarrhea Last Admin: 07/11/18 20:55 Dose: 2 mg Lorazepam (Ativan) 0 mg PO Q4H PRN; Protocol PRN Reason: Withdrawal Symptoms Lorazepam (Ativan) 0 mg IVPUSH Q4H PRN; Protocol PRN Reason: Withdrawal Symptoms Last Admin: 07/09/18 09:55 Dose: 1 mg Melatonin (Melatonin) 9 mg PO BEDTIME [facility] Last Admin: 07/12/18 00:13 Dose: 9 mg Multivitamins/Minerals/Vitamin C (Tab-A-Marva) 1 tab PO DAILY [facility] Last Admin: 07/12/18 08:15 Dose: 1 tab Nicotine (Habitrol) 14 mg TRDERM Q24H [facility] Last Admin: 07/11/18 10:59 Dose: 14 mg Ondansetron HCl (Zofran) 4 mg IVPUSH Q3H PRN PRN Reason: Nausea Last Admin: 07/10/18 00:26 Dose: 4 mg Pantoprazole Sodium (Protonix Iv) 40 mg IVPUSH Q12HR [facility] Last Admin: 07/12/18 08:15 Dose: 40 mg Thiamine HCl (Vitamin B-1) 100 mg PO DAILY [facility] Last Admin: 07/12/18 08:15 Dose: 100 mg Vancomycin HCl (Pharmacy To Dose - Vancomycin) 1 dose .XX ASDIRECTED [facility] Vancomycin HCl (First-Vancomycin 25 Compounding Kit) 125 mg PO QID [facility] Last Admin: 07/12/18 05:27 Dose: 5 ml Discontinued Medications Enoxaparin Sodium (Lovenox) 40 mg SUBCUT Q24H [facility] Last Admin: 07/10/18 10:28 Dose: 40 mg Folic Acid (Folic Acid) 1 mg PO ONETIME ONE Stop: 07/08/18 22:55 Last Admin: 07/08/18 23:27 Dose: 1 mg Folic Acid (Folic Acid) 1 mg PO BEDTIME [facility] Last Admin: 07/10/18 20:51 Dose: 1 mg Multivitamins/Minerals 10 ml/Thiamine HCl 100 mg/ Folic Acid 1 mg/ Sodium Chloride 1,011.2 mls @ 250 mls/hr IV ONETIME ONE Stop: 07/09/18 00:09 Last Admin: 07/08/18 21:16 Dose: 250 mls/hr Magnesium Sulfate 2 gm/ Premix 50 mls @ 50 mls/hr IV ONETIME ONE Stop: 07/09/18 00:24 Last Admin: 07/08/18 23:44 Dose: 50 mls/hr Magnesium Sulfate 2 gm/ Premix 50 mls @ 50 mls/hr IV ONETIME ONE Stop: 07/09/18 08:43 Last Admin: 07/09/18 08:17 Dose: 50 mls/hr Sodium Chloride (Normal Saline) 1,000 mls @ 125 mls/hr IV ASDIRECTED [facility] Last Admin: 07/10/18 13:28 Dose: 125 mls/hr Vancomycin HCl 1,500 mg/ (Sodium Chloride) 500 mls @ 1,000 mls/hr IV Q8H [facility] Vancomycin HCl 1,500 mg/ (Sodium Chloride) 500 mls @ 250 mls/hr IV Q8H [facility] Last Admin: 07/09/18 15:19 Dose: 250 mls/hr Ketorolac Tromethamine (Toradol) 30 mg IVPUSH ONETIME ONE Stop: 07/08/18 18:33 Last Admin: 07/08/18 18:46 Dose: 30 mg Lorazepam (Ativan) 1 mg IVPUSH Q4H PRN; Protocol PRN Reason: Anxiety Last Admin: 07/08/18 23:36 Dose: 1 mg Multivitamins/Minerals/Vitamin C (Tab-A-Marva) 1 tab PO BEDTIME [facility] Last Admin: 07/10/18 20:51 Dose: 1 tab Nitroglycerin (Nitro-Bid 2%) 1 gm TOP ONETIME ONE Stop: 07/08/18 18:33 Last Admin: 07/08/18 21:15 Dose: Not Given Pantoprazole Sodium (Protonix Iv) 40 mg IVPUSH Q12HR [facility] Potassium Chloride (Klor-Con M20) 40 meq PO ONETIME ONE Stop: 07/08/18 20:08 Last Admin: 07/08/18 20:20 Dose: 40 meq Potassium Chloride (Klor-Con M20) 40 meq PO ONETIME ONE Stop: 07/08/18 23:06 Last Admin: 07/08/18 23:27 Dose: 40 meq Potassium Chloride (Klor-Con M20) 40 meq PO ONETIME ONE Stop: 07/09/18 07:45 Last Admin: 07/09/18 08:18 Dose: 40 meq Thiamine HCl (Vitamin B-1) 100 mg PO ONETIME ONE Stop: 07/08/18 22:55 Last Admin: 07/08/18 23:27 Dose: 100 mg Thiamine HCl (Vitamin B-1) 100 mg PO BEDTIME [facility] Last Admin: 07/10/18 20:51 Dose: 100 mg Tramadol HCl (Ultram) 50 mg PO ONETIME ONE Stop: 07/10/18 18:52 Last Admin: 07/10/18 19:24 Dose: 50 mg - Exam General: Alert, Oriented, Cooperative Lungs: Clear to Auscultation, Normal Respiratory Effort Cardiovascular: Regular Rate, Regular Rhythm GI/Abdominal Exam: Normal Bowel Sounds, Soft, Non-Tender, No Distention Extremities: Other (edema improving,crossing tender to palpation) Skin: Warm, Dry, Intact Neurological: No New Focal Deficit Psy/Mental Status: Alert, Normal Affect, Normal Mood - Problem List Review Problem List Initiated/Reviewed/Updated: Yes - My Orders Last 24 Hours: My Active Orders 07/11/18 09:00 Folic Acid 1 mg PO DAILY Lisinopril [Prinivil] 40 mg PO DAILY Multivitamins [Tab-A-Marva] 1 tab PO DAILY Thiamine [Vitamin B-1] 100 mg PO DAILY 07/11/18 11:08 Loperamide [Imodium] 2 mg PO Q6H PRN - Plan Plan:: 1. Diarrhea secondary to C.diff infection continue oral vancomycin 125 mg qid. His stool was negative for Shiga/camp. Continue imodium to help control number of bowel movements. 2. Anemia with positive hemoccult- His hemoglobin was stable overnight. Continue PPI BID. His bleeding is likely from gastritis secondary to alcohol use. He will need to follow up with GI as an outpatient. 3. Alcohol Intoxication with impending withdrawal- CIWA and Ativan protocol. Continue on multivitamin, folic acid, and thiamine.
[2018-07-12] MEDS: Nicotine 14 MG/24 Hr Patch TRDERM SCH (11:55)
[2018-07-12] MEDS: Acetaminophen 325 MG Tab PO PRN ×2 (12:06→16:58)
[2018-07-13] MEDS: Acetaminophen 325 MG Tab PO PRN (00:06)
[2018-07-13] MEDS: Vancomycin 25 MG/ML Compounding Kit PO SCH ×5 (00:07→23:04)
[2018-07-13 06:30] LABS: CHLORIDE,CL 103 mmol/L (98-107); SODIUM,NA 137 mmol/L (136-148)
[2018-07-13] MEDS: Folic Acid 1 MG Tab PO SCH (09:40)
[2018-07-13] MEDS: Multivitamin Tab PO SCH (09:40)
[2018-07-13] MEDS: Lisinopril 10 MG Tab PO SCH (09:40)
[2018-07-13] MEDS: Thiamine 100 MG Tab PO SCH (09:40)
[2018-07-13] MEDS: Pantoprazole 40 MG Vial IVPUSH SCH ×2 (09:40→20:45)
[2018-07-13] MEDS ORDERED: Cefepime 1 GM in Premix Bag 1 BAG IV SCH (10:30)
[2018-07-13] MEDS: Nicotine 14 MG/24 Hr Patch TRDERM SCH (10:33)
--- NOTE | 2018-07-13 11:39 | PCM.PN ---
- General Info Date of Service: 07/13/18 Subjective Update: He feels that he is well cared for. He is eating OK He has ambulated in the room. he states that his diarrhea is no better. - Patient Data Vitals - Most Recent: Last Vital Signs Temp 98.7 F 07/13/18 08:00 Pulse 86 07/13/18 08:00 Resp 16 07/13/18 08:00 BP 141/95 H 07/13/18 09:40 Pulse Ox 94 L 07/13/18 08:00 Weight - Most Recent: 92.079 kg I&O - Last 24 Hours: Intake & Output 07/12/18 07/13/18 07/13/18 22:59 06:59 14:59 Intake Total 900 900 Output Total 600 400 Balance 300 500 Lab Results Last 24 Hours: Laboratory Results - last 24 hr 07/13/18 07/13/18 Range/Units 05:57 05:57 WBC 3.95 L (4.0-11.0) K/uL RBC 3.33 L (4.50-5.90) M/uL Hgb 10.5 L (13.0-17.0) g/dL Hct 31.2 L (38.0-50.0) % MCV 93.7 (80.0-98.0) fL MCH 31.5 (27.0-32.0) pg MCHC 33.7 (31.0-37.0) g/dL RDW Std Deviation 60.6 (28.0-62.0) fl RDW Coeff of Michelle 18 H (11.0-15.0) % Plt Count 168 (150-400) K/uL MPV 9.30 (7.40-12.00) fL Neut % (Auto) 60.7 (48.0-80.0) % Lymph % (Auto) 21.5 (16.0-40.0) % [place] % (Auto) 11.9 (0.0-15.0) % Eos % (Auto) 5.6 (0.0-7.0) % Baso % (Auto) 0.3 (0.0-1.5) % Neut # (Auto) 2.4 (1.4-5.7) K/uL Lymph # (Auto) 0.9 (0.6-2.4) K/uL [place] # (Auto) 0.5 (0.0-0.8) K/uL Eos # (Auto) 0.2 (0.0-0.7) K/uL Baso # (Auto) 0.0 (0.0-0.1) K/uL Nucleated RBC % 0.0 /100WBC Nucleated RBCs # 0 K/uL Sodium 137 (136-148) mmol/L Potassium 3.7 (3.5-5.1) mmol/L Chloride 103 (98-107) mmol/L Carbon Dioxide 25.8 (21.0-32.0) mmol/L BUN 13 (7.0-18.0) mg/dL Creatinine 0.8 (0.8-1.3) mg/dL Est Cr Clr Drug Dosing 137.16 mL/min Estimated GFR (MDRD) > 60.0 ml/min Glucose 115 H (74-106) mg/dL Calcium 9.0 (8.5-10.1) mg/dL Total Bilirubin 0.4 (0.2-1.0) mg/dL AST 23 (15-37) IU/L ALT 42 (14-63) IU/L Alkaline Phosphatase 131 H (46-116) U/L Total Protein 6.2 L (6.4-8.2) g/dL Albumin 2.8 L (3.4-5.0) g/dL Globulin 3.4 (2.0-3.5) g/dL Albumin/Globulin Ratio 0.8 L (1.3-2.8) Michel Results Last 24 Hours: Microbiology 07/11/18 22:10 Quick Strep Confirmation Culture - Final Throat Group A Streptococcus Rapid Screen - Final NEGATIVE STREP A SCREEN Med Orders - Current: Current Medications Acetaminophen (Tylenol) 650 mg PO Q4H PRN PRN Reason: Pain (Mild 1-3)/fever Last Admin: 07/13/18 00:06 Dose: 650 mg Folic Acid (Folic Acid) 1 mg PO DAILY [facility] Last Admin: 07/13/18 09:40 Dose: 1 mg Lisinopril (Prinivil) 40 mg PO DAILY [facility] Last Admin: 07/13/18 09:40 Dose: 40 mg Loperamide HCl (Imodium) 2 mg PO Q6H PRN PRN Reason: Diarrhea Last Admin: 07/11/18 20:55 Dose: 2 mg Lorazepam (Ativan) 0 mg PO Q4H PRN; Protocol PRN Reason: Withdrawal Symptoms Lorazepam (Ativan) 0 mg IVPUSH Q4H PRN; Protocol PRN Reason: Withdrawal Symptoms Last Admin: 07/09/18 09:55 Dose: 1 mg Melatonin (Melatonin) 9 mg PO BEDTIME [facility] Last Admin: 07/12/18 20:39 Dose: 9 mg Metronidazole (Metronidazole) 500 mg PO Q8H [facility] Multivitamins/Minerals/Vitamin C (Tab-A-Marva) 1 tab PO DAILY [facility] Last Admin: 07/13/18 09:40 Dose: 1 tab Nicotine (Habitrol) 14 mg TRDERM Q24H [facility] Last Admin: 07/13/18 10:33 Dose: 14 mg Ondansetron HCl (Zofran) 4 mg IVPUSH Q3H PRN PRN Reason: Nausea Last Admin: 07/10/18 00:26 Dose: 4 mg Pantoprazole Sodium (Protonix Iv) 40 mg IVPUSH Q12HR [facility] Last Admin: 07/13/18 09:40 Dose: 40 mg Thiamine HCl (Vitamin B-1) 100 mg PO DAILY [facility] Last Admin: 07/13/18 09:40 Dose: 100 mg Vancomycin HCl (Pharmacy To Dose - Vancomycin) 1 dose .XX ASDIRECTED [facility] Vancomycin HCl (First-Vancomycin 25 Compounding Kit) 125 mg PO QID [facility] Last Admin: 07/13/18 05:59 Dose: 5 ml Discontinued Medications Enoxaparin Sodium (Lovenox) 40 mg SUBCUT Q24H [facility] Last Admin: 07/10/18 10:28 Dose: 40 mg Folic Acid (Folic Acid) 1 mg PO ONETIME ONE Stop: 07/08/18 22:55 Last Admin: 07/08/18 23:27 Dose: 1 mg Folic Acid (Folic Acid) 1 mg PO BEDTIME [facility] Last Admin: 07/10/18 20:51 Dose: 1 mg Multivitamins/Minerals 10 ml/Thiamine HCl 100 mg/ Folic Acid 1 mg/ Sodium Chloride 1,011.2 mls @ 250 mls/hr IV ONETIME ONE Stop: 07/09/18 00:09 Last Admin: 07/08/18 21:16 Dose: 250 mls/hr Magnesium Sulfate 2 gm/ Premix 50 mls @ 50 mls/hr IV ONETIME ONE Stop: 07/09/18 00:24 Last Admin: 07/08/18 23:44 Dose: 50 mls/hr Magnesium Sulfate 2 gm/ Premix 50 mls @ 50 mls/hr IV ONETIME ONE Stop: 07/09/18 08:43 Last Admin: 07/09/18 08:17 Dose: 50 mls/hr Sodium Chloride (Normal Saline) 1,000 mls @ 125 mls/hr IV ASDIRECTED [facility] Last Admin: 07/10/18 13:28 Dose: 125 mls/hr Vancomycin HCl 1,500 mg/ (Sodium Chloride) 500 mls @ 1,000 mls/hr IV Q8H [facility] Vancomycin HCl 1,500 mg/ (Sodium Chloride) 500 mls @ 250 mls/hr IV Q8H [facility] Last Admin: 07/09/18 15:19 Dose: 250 mls/hr Ketorolac Tromethamine (Toradol) 30 mg IVPUSH ONETIME ONE Stop: 07/08/18 18:33 Last Admin: 07/08/18 18:46 Dose: 30 mg Lorazepam (Ativan) 1 mg IVPUSH Q4H PRN; Protocol PRN Reason: Anxiety Last Admin: 07/08/18 23:36 Dose: 1 mg Multivitamins/Minerals/Vitamin C (Tab-A-Marva) 1 tab PO BEDTIME [facility] Last Admin: 07/10/18 20:51 Dose: 1 tab Nitroglycerin (Nitro-Bid 2%) 1 gm TOP ONETIME ONE Stop: 07/08/18 18:33 Last Admin: 07/08/18 21:15 Dose: Not Given Pantoprazole Sodium (Protonix Iv) 40 mg IVPUSH Q12HR [facility] Potassium Chloride (Klor-Con M20) 40 meq PO ONETIME ONE Stop: 07/08/18 20:08 Last Admin: 07/08/18 20:20 Dose: 40 meq Potassium Chloride (Klor-Con M20) 40 meq PO ONETIME ONE Stop: 07/08/18 23:06 Last Admin: 07/08/18 23:27 Dose: 40 meq Potassium Chloride (Klor-Con M20) 40 meq PO ONETIME ONE Stop: 07/09/18 07:45 Last Admin: 07/09/18 08:18 Dose: 40 meq Thiamine HCl (Vitamin B-1) 100 mg PO ONETIME ONE Stop: 07/08/18 22:55 Last Admin: 07/08/18 23:27 Dose: 100 mg Thiamine HCl (Vitamin B-1) 100 mg PO BEDTIME [facility] Last Admin: 07/10/18 20:51 Dose: 100 mg Tramadol HCl (Ultram) 50 mg PO ONETIME ONE Stop: 07/10/18 18:52 Last Admin: 07/10/18 19:24 Dose: 50 mg - Exam Physical Findings Comments:: alert nad lungs CTA abdomen mild epigastric tenderness normal bowel sounds; no distention; no rebound tenderness no tremor normal mentation cooperative - Problem List & Annotations (1) Alcoholism /alcohol abuse SNOMED Code(s): 3838492 Code(s): F10.20 - ALCOHOL DEPENDENCE, UNCOMPLICATED Status: Acute Current Visit: Yes (2) C. difficile colitis SNOMED Code(s): 416765040 Code(s): A04.72 - ENTEROCOLITIS D/T CLOSTRIDIUM DIFFICILE, NOT SPCF RECUR Status: Acute Current Visit: Yes (3) Homelessness SNOMED Code(s): 70569947 Code(s): Z59.0 - HOMELESSNESS Status: Acute Current Visit: Yes (4) Heme positive stool SNOMED Code(s): 65744957, 186749291 Code(s): R19.5 - OTHER FECAL ABNORMALITIES Status: Acute Current Visit: Yes (5) Alcoholic gastritis SNOMED Code(s): 4706017 Code(s): K29.20 - ALCOHOLIC GASTRITIS WITHOUT BLEEDING Status: Acute Current Visit: Yes - Problem List Review Problem List Initiated/Reviewed/Updated: Yes - My Orders Last 24 Hours: My Active Orders 07/13/18 11:45 metroNIDAZOLE 500 mg PO Q8H - Plan Plan:: 1. Diarrhea secondary to C.diff infection continue oral vancomycin 125 mg qid. His stool was negative for Shiga/camp. Continue imodium to help control number of bowel movements. 2. Anemia with positive hemoccult- His hemoglobin was stable overnight. Continue PPI BID. His bleeding is likely from gastritis secondary to alcohol use. He will need to follow up with GI as an outpatient. 3. Alcohol Intoxication with impending withdrawal- CIWA and Ativan protocol. Continue on multivitamin, folic acid, and thiamine. 07/13/18 Add flagyl po address disposition with help of discharge planning tomorrow. I have discussed the possibility of him going to [facility] to be with his mother if transportation might be arranged. continued monitoring. ativan prn for muscle cramps. Blade Bailey MD
[2018-07-13] MEDS: metroNIDAZOLE 250 MG Tab PO SCH ×2 (12:30→20:44)
[2018-07-13] MEDS: LORazepam 1 MG Tab PO PRN ×2 (12:31→23:04)
[2018-07-13] MEDS: Melatonin 3 MG Tab PO SCH (20:44)
[2018-07-14] MEDS: metroNIDAZOLE 250 MG Tab PO SCH ×2 (03:14→11:01)
[2018-07-14] MEDS: Vancomycin 25 MG/ML Compounding Kit PO SCH ×4 (06:24→23:00)
[2018-07-14] MEDS: Pantoprazole 40 MG Vial IVPUSH SCH (08:57)
[2018-07-14] MEDS: Multivitamin Tab PO SCH (08:59)
[2018-07-14] MEDS: Thiamine 100 MG Tab PO SCH (08:59)
[2018-07-14] MEDS: Folic Acid 1 MG Tab PO SCH (08:59)
[2018-07-14] MEDS: Lisinopril 10 MG Tab PO SCH (08:59)
[2018-07-14] MEDS: Nicotine 14 MG/24 Hr Patch TRDERM SCH (10:59)
[2018-07-14] MEDS ORDERED: methylPREDNISolone Sodium Succinate 125 MG/2 ML SDV IVPUSH SCH (11:45)
--- NOTE | 2018-07-14 11:50 | PCM.PN ---
- General Info Date of Service: 07/14/18 Admission Dx/Problem (Free Text): Admission Diagnosis/Problem Admission Diagnosis/Problem Chest pain, rule out acute myocardial infarction - Review of Systems Systems Review Comment:: he notes right facial swelling. He complains of abdominal pain and frequent bm' s. Nurses note only very small stools. - Patient Data Vitals - Most Recent: Last Vital Signs Temp 99.1 F 07/14/18 08:00 Pulse 102 H 07/14/18 08:00 Resp 12 07/14/18 08:00 BP 124/93 H 07/14/18 08:59 Pulse Ox 94 L 07/14/18 08:00 Weight - Most Recent: 92.079 kg I&O - Last 24 Hours: Intake & Output 07/13/18 07/14/18 07/14/18 22:59 06:59 14:59 Intake Total 900 1450 Output Total 300 700 Balance 600 750 Michel Results Last 24 Hours: Microbiology 07/11/18 22:10 Quick Strep Confirmation Culture - Final Throat Group A Streptococcus Rapid Screen - Final NEGATIVE STREP A SCREEN Med Orders - Current: Current Medications Acetaminophen (Tylenol) 650 mg PO Q4H PRN PRN Reason: Pain (Mild 1-3)/fever Last Admin: 07/13/18 00:06 Dose: 650 mg Folic Acid (Folic Acid) 1 mg PO DAILY [facility] Last Admin: 07/14/18 08:59 Dose: 1 mg Loperamide HCl (Imodium) 2 mg PO Q6H PRN PRN Reason: Diarrhea Last Admin: 07/11/18 20:55 Dose: 2 mg Lorazepam (Ativan) 0 mg PO Q4H PRN; Protocol PRN Reason: Withdrawal Symptoms Lorazepam (Ativan) 0 mg IVPUSH Q4H PRN; Protocol PRN Reason: Withdrawal Symptoms Last Admin: 07/09/18 09:55 Dose: 1 mg Lorazepam (Ativan) 1 mg PO Q6H PRN PRN Reason: Anxiety Last Admin: 07/13/18 23:04 Dose: 1 mg Melatonin (Melatonin) 9 mg PO BEDTIME [facility] Last Admin: 07/13/18 20:44 Dose: 9 mg Methylprednisolone Sodium Succinate (Solu-Medrol) 125 mg IVPUSH Q8H [facility] Multivitamins/Minerals/Vitamin C (Tab-A-Marva) 1 tab PO DAILY [facility] Last Admin: 07/14/18 08:59 Dose: 1 tab Nicotine (Habitrol) 14 mg TRDERM Q24H [facility] Last Admin: 07/14/18 10:59 Dose: 14 mg Ondansetron HCl (Zofran) 4 mg IVPUSH Q3H PRN PRN Reason: Nausea Last Admin: 07/10/18 00:26 Dose: 4 mg Thiamine HCl (Vitamin B-1) 100 mg PO DAILY [facility] Last Admin: 07/14/18 08:59 Dose: 100 mg Vancomycin HCl (Pharmacy To Dose - Vancomycin) 1 dose .XX ASDIRECTED [facility] Vancomycin HCl (First-Vancomycin 25 Compounding Kit) 125 mg PO QID [facility] Last Admin: 07/14/18 11:02 Dose: 5 ml Discontinued Medications Enoxaparin Sodium (Lovenox) 40 mg SUBCUT Q24H [facility] Last Admin: 07/10/18 10:28 Dose: 40 mg Folic Acid (Folic Acid) 1 mg PO ONETIME ONE Stop: 07/08/18 22:55 Last Admin: 07/08/18 23:27 Dose: 1 mg Folic Acid (Folic Acid) 1 mg PO BEDTIME [facility] Last Admin: 07/10/18 20:51 Dose: 1 mg Multivitamins/Minerals 10 ml/Thiamine HCl 100 mg/ Folic Acid 1 mg/ Sodium Chloride 1,011.2 mls @ 250 mls/hr IV ONETIME ONE Stop: 07/09/18 00:09 Last Admin: 07/08/18 21:16 Dose: 250 mls/hr Magnesium Sulfate 2 gm/ Premix 50 mls @ 50 mls/hr IV ONETIME ONE Stop: 07/09/18 00:24 Last Admin: 07/08/18 23:44 Dose: 50 mls/hr Magnesium Sulfate 2 gm/ Premix 50 mls @ 50 mls/hr IV ONETIME ONE Stop: 07/09/18 08:43 Last Admin: 07/09/18 08:17 Dose: 50 mls/hr Sodium Chloride (Normal Saline) 1,000 mls @ 125 mls/hr IV ASDIRECTED [facility] Last Admin: 07/10/18 13:28 Dose: 125 mls/hr Vancomycin HCl 1,500 mg/ (Sodium Chloride) 500 mls @ 1,000 mls/hr IV Q8H [facility] Vancomycin HCl 1,500 mg/ (Sodium Chloride) 500 mls @ 250 mls/hr IV Q8H [facility] Last Admin: 07/09/18 15:19 Dose: 250 mls/hr Ketorolac Tromethamine (Toradol) 30 mg IVPUSH ONETIME ONE Stop: 07/08/18 18:33 Last Admin: 07/08/18 18:46 Dose: 30 mg Lisinopril (Prinivil) 40 mg PO DAILY [facility] Last Admin: 07/14/18 08:59 Dose: 40 mg Lorazepam (Ativan) 1 mg IVPUSH Q4H PRN; Protocol PRN Reason: Anxiety Last Admin: 07/08/18 23:36 Dose: 1 mg Metronidazole (Metronidazole) 500 mg PO Q8H [facility] Last Admin: 07/14/18 11:01 Dose: 500 mg Multivitamins/Minerals/Vitamin C (Tab-A-Marva) 1 tab PO BEDTIME [facility] Last Admin: 07/10/18 20:51 Dose: 1 tab Nitroglycerin (Nitro-Bid 2%) 1 gm TOP ONETIME ONE Stop: 07/08/18 18:33 Last Admin: 07/08/18 21:15 Dose: Not Given Pantoprazole Sodium (Protonix Iv) 40 mg IVPUSH Q12HR [facility] Pantoprazole Sodium (Protonix Iv) 40 mg IVPUSH Q12HR [facility] Last Admin: 07/14/18 08:57 Dose: 40 mg Potassium Chloride (Klor-Con M20) 40 meq PO ONETIME ONE Stop: 07/08/18 20:08 Last Admin: 07/08/18 20:20 Dose: 40 meq Potassium Chloride (Klor-Con M20) 40 meq PO ONETIME ONE Stop: 07/08/18 23:06 Last Admin: 07/08/18 23:27 Dose: 40 meq Potassium Chloride (Klor-Con M20) 40 meq PO ONETIME ONE Stop: 07/09/18 07:45 Last Admin: 07/09/18 08:18 Dose: 40 meq Thiamine HCl (Vitamin B-1) 100 mg PO ONETIME ONE Stop: 07/08/18 22:55 Last Admin: 07/08/18 23:27 Dose: 100 mg Thiamine HCl (Vitamin B-1) 100 mg PO BEDTIME [facility] Last Admin: 07/10/18 20:51 Dose: 100 mg Tramadol HCl (Ultram) 50 mg PO ONETIME ONE Stop: 07/10/18 18:52 Last Admin: 07/10/18 19:24 Dose: 50 mg - Exam General: Alert, Oriented, Cooperative Lungs: Clear to Auscultation, Normal Respiratory Effort Cardiovascular: Regular Rate, Regular Rhythm GI/Abdominal Exam: Soft, Other (moderate diffuse tenderness) Physical Findings Comments:: marked soft tissue swelling of the right face and lips without definite tongue swelling; non tender; not indurated or erythematous - Problem List & Annotations (1) Alcoholism /alcohol abuse SNOMED Code(s): 9426801 Code(s): F10.20 - ALCOHOL DEPENDENCE, UNCOMPLICATED Status: Acute Current Visit: Yes (2) C. difficile colitis SNOMED Code(s): 566548598 Code(s): A04.72 - ENTEROCOLITIS D/T CLOSTRIDIUM DIFFICILE, NOT SPCF RECUR Status: Acute Current Visit: Yes (3) Homelessness SNOMED Code(s): 53693760 Code(s): Z59.0 - HOMELESSNESS Status: Acute Current Visit: Yes (4) Heme positive stool SNOMED Code(s): 83102502, 771341638 Code(s): R19.5 - OTHER FECAL ABNORMALITIES Status: Acute Current Visit: Yes (5) Alcoholic gastritis SNOMED Code(s): 0273639 Code(s): K29.20 - ALCOHOLIC GASTRITIS WITHOUT BLEEDING Status: Acute Current Visit: Yes (6) Angioedema SNOMED Code(s): 56584110 Code(s): T78.3XXA - ANGIONEUROTIC EDEMA, INITIAL ENCOUNTER Status: Acute Current Visit: Yes - Problem List Review Problem List Initiated/Reviewed/Updated: Yes - My Orders Last 24 Hours: My Active Orders 07/13/18 11:40 LORazepam [Ativan] 1 mg PO Q6H PRN 07/14/18 11:43 Abdomen Pelvis w Cont [CT] Routine 07/14/18 11:45 methylPREDNISolone Sod Succ [Solu-MEDROL] 125 mg IVPUSH Q8H 07/15/18 05:11 CBC WITH AUTO DIFF [HEME] AM 07/16/18 05:11 CBC WITH AUTO DIFF [HEME] AM 07/17/18 05:11 CBC WITH AUTO DIFF [HEME] AM - Plan Plan:: 1. Diarrhea secondary to C.diff infection continue oral vancomycin 125 mg qid. His stool was negative for Shiga/camp. Continue imodium to help control number of bowel movements. 2. Anemia with positive hemoccult- His hemoglobin was stable overnight. Continue PPI BID. His bleeding is likely from gastritis secondary to alcohol use. He will need to follow up with GI as an outpatient. 3. Alcohol Intoxication with impending withdrawal- CIWA and Ativan protocol. Continue on multivitamin, folic acid, and thiamine. 07/13/18 Add flagyl po address disposition with help of discharge planning tomorrow. I have discussed the possibility of him going to [facility] to be with his mother if transportation might be arranged. continued monitoring. ativan prn for muscle cramps. Blade Bailey MD 07/14/2018 I spoke to Tresa pharmacist. We decided to stop flagyl, as it was recently started and to also stop lisinopril. there is no current airway compromise. Must consider some local effect such as insect sting as just the right side of the face is affected. CT with IV contrast abdomen and pelvis repeat stool occult blood Blade Bailey MD
--- NOTE | 2018-07-14 12:10 | PCM.SN ---
- Free Text/Narrative Note: after discussion with Inderjit, department of pharmacy, I have also decided to hold immodium and zofran as there has been some reports of facial swelling/ angioedema with these medications.
[2018-07-14] MEDS ORDERED: EPINEPHrine 1 MG/1 ML Amp SUBCUT ONE ×2 (12:36→16:24)
[2018-07-14] MEDS: Acetaminophen 325 MG Tab PO PRN (12:48)
[2018-07-14] MEDS: diphenhydrAMINE 50 MG/ML SDV IVPUSH SCH ×2 (12:48→18:54)
[2018-07-14] MEDS: LORazepam 2 MG/ML SDV IVPUSH PRN (13:00)
[2018-07-14] MEDS ORDERED: Iopamidol 755 MG/ML 200 ML Multipack Bottle IVPUSH STA (14:32)
--- NOTE | 2018-07-14 15:19 | CT ---
CT of the abdomen and pelvis with contrast. HISTORY: Pain TECHNIQUE: Axial CT images were obtained of the abdomen and pelvis following administration of 100 mL of Isovue-370 in left antecubital fossa without complication. Coronal and sagittal reconstructions o btained. FINDINGS: Trace bilateral pleural effusions. Mild dependent atelectasis. The liver, spleen, and the left adrenal gland appear normal. There is an indeterminant 2.2 x 1.9 cm r ight adrenal nodule. The gallbladder is grossly unremarkable. No bulky retroperitoneal lymphadenopath y or abdominal ascites. There is a tiny 6 mm cyst within the uncinate process of the pancreas. The kidneys enhance and function symmetrically without evidence of obstructive uropathy. Small renal cortical cysts noted bilaterally. The large and small bowel are normal in caliber without evidence of obstruction. Mild diverticulosis without evidence of diverticulitis. The urinary bladder is normal. There is a tiny fat-containing rig ht inguinal hernia. No bulky pelvic lymphadenopathy or free pelvic fluid. No suspicious osseous abnormalities identified. IMPRESSION: 1. No acute findings noted within the abdomen or pelvis. 2. Trace bilateral pleural effusions. 3. There is a 2.2 x 1.9 cm right adrenal nodule, follow-up with an adrenal protocol MRI or CT may be beneficial. 4. Tiny cyst within the uncinate process of the pancreas, likely a side branch IPMN. Follow-up could also be performed on the adrenal protocol imaging. 5. Mild diverticulosis without evidence diverticulitis.
[2018-07-14] MEDS: methylPREDNISolone Sodium Succinate 125 MG/2 ML SDV IVPUSH SCH ×2 (16:54→21:43)
[2018-07-14] MEDS ORDERED: Ketorolac 30 MG/ML SDV IVPUSH PRN (18:19)
--- NOTE | 2018-07-14 18:23 | PCM.SN ---
- Free Text/Narrative Note: He has marked bilateral lip swelling. He was sleeping peacefully when I first examined him but awoke easily. He complains of back pain and lower extremity pain. He states that the pain was worse when he first arrived and states that the tylenol relief is not adequate. Exam: no increased work of breathing marked bilateral upper and lower lip swelling no tongue swelling speech understandable. no stridor or subjective feeling of upper airway compromise Assess: angioedema Plan: will discontinue nicotine patch as per literature search to ICU to monitor for airway compromise. Blade Bailey MD
[2018-07-14] MEDS: LORazepam 1 MG Tab PO PRN (23:00)
[2018-07-14] MEDS: Melatonin 3 MG Tab PO SCH (23:30)
[2018-07-15] MEDS: diphenhydrAMINE 50 MG/ML SDV IVPUSH SCH ×3 (00:14→12:12)
[2018-07-15] MEDS: Vancomycin 25 MG/ML Compounding Kit PO SCH ×4 (05:25→23:00)
[2018-07-15] MEDS: methylPREDNISolone Sodium Succinate 125 MG/2 ML SDV IVPUSH SCH ×3 (05:25→16:17)
[2018-07-15] MEDS: Multivitamin Tab PO SCH (08:13)
[2018-07-15] MEDS: Thiamine 100 MG Tab PO SCH (08:14)
[2018-07-15] MEDS: Folic Acid 1 MG Tab PO SCH (08:14)
[2018-07-15] MEDS: LORazepam 1 MG Tab PO PRN ×2 (08:25→22:50)
--- NOTE | 2018-07-15 09:26 | PCM.PN ---
- General Info Date of Service: 07/15/18 Subjective Update: His facial swelling is improved. His diarrhea is improved. - Review of Systems General: Denies: Fever Gastrointestinal: Denies: Abdominal Pain Psychiatric: Denies: Confusion - Patient Data Vitals - Most Recent: Last Vital Signs Temp 97.8 F 07/15/18 08:00 Pulse 85 07/15/18 02:00 Resp 17 07/15/18 09:00 BP 122/69 07/15/18 09:00 Pulse Ox 93 L 07/15/18 09:00 Weight - Most Recent: 88.088 kg I&O - Last 24 Hours: Intake & Output 07/14/18 07/15/18 07/15/18 22:59 06:59 14:59 Intake Total 472 1050 Output Total 725 Balance 472 325 Lab Results Last 24 Hours: Laboratory Results - last 24 hr 07/15/18 Range/Units 05:26 WBC 4.85 (4.0-11.0) K/uL RBC 3.46 L (4.50-5.90) M/uL Hgb 10.6 L (13.0-17.0) g/dL Hct 32.4 L (38.0-50.0) % MCV 93.6 (80.0-98.0) fL MCH 30.6 (27.0-32.0) pg MCHC 32.7 (31.0-37.0) g/dL RDW Std Deviation 57.6 (28.0-62.0) fl RDW Coeff of Michelle 17 H (11.0-15.0) % Plt Count 255 (150-400) K/uL MPV 9.80 (7.40-12.00) fL Neut % (Auto) 80.5 H (48.0-80.0) % Lymph % (Auto) 14.4 L (16.0-40.0) % Lucas % (Auto) 4.9 (0.0-15.0) % Eos % (Auto) 0.0 (0.0-7.0) % Baso % (Auto) 0.2 (0.0-1.5) % Neut # (Auto) 3.9 (1.4-5.7) K/uL Lymph # (Auto) 0.7 (0.6-2.4) K/uL Lucas # (Auto) 0.2 (0.0-0.8) K/uL Eos # (Auto) 0.0 (0.0-0.7) K/uL Baso # (Auto) 0.0 (0.0-0.1) K/uL Nucleated RBC % 0.0 /100WBC Nucleated RBCs # 0 K/uL Med Orders - Current: Current Medications Acetaminophen (Tylenol) 650 mg PO Q4H PRN PRN Reason: Pain (Mild 1-3)/fever Last Admin: 07/14/18 12:48 Dose: 650 mg Diphenhydramine HCl (Benadryl) 25 mg IVPUSH Q6H [facility] Last Admin: 07/15/18 06:27 Dose: 25 mg Folic Acid (Folic Acid) 1 mg PO DAILY [facility] Last Admin: 07/15/18 08:14 Dose: 1 mg Ketorolac Tromethamine (Toradol) 30 mg IVPUSH Q8H PRN PRN Reason: Pain Lorazepam (Ativan) 0 mg PO Q4H PRN; Protocol PRN Reason: Withdrawal Symptoms Lorazepam (Ativan) 0 mg IVPUSH Q4H PRN; Protocol PRN Reason: Withdrawal Symptoms Last Admin: 07/14/18 13:00 Dose: 1 mg Lorazepam (Ativan) 1 mg PO Q6H PRN PRN Reason: Anxiety Last Admin: 07/15/18 08:25 Dose: 1 mg Melatonin (Melatonin) 9 mg PO BEDTIME [facility] Last Admin: 07/14/18 23:30 Dose: 9 mg Methylprednisolone Sodium Succinate (Solu-Medrol) 125 mg IVPUSH Q6H [facility] Last Admin: 07/15/18 05:25 Dose: 125 mg Multivitamins/Minerals/Vitamin C (Tab-A-Marva) 1 tab PO DAILY [facility] Last Admin: 07/15/18 08:13 Dose: 1 tab Thiamine HCl (Vitamin B-1) 100 mg PO DAILY [facility] Last Admin: 07/15/18 08:14 Dose: 100 mg Vancomycin HCl (Pharmacy To Dose - Vancomycin) 1 dose .XX ASDIRECTED [facility] Vancomycin HCl (First-Vancomycin 25 Compounding Kit) 125 mg PO QID [facility] Last Admin: 07/15/18 05:25 Dose: 5 ml Discontinued Medications Enoxaparin Sodium (Lovenox) 40 mg SUBCUT Q24H [facility] Last Admin: 07/10/18 10:28 Dose: 40 mg Epinephrine HCl (Adrenalin) 0.3 mg SUBCUT ONETIME ONE Stop: 07/14/18 12:37 Last Admin: 07/14/18 13:07 Dose: 0.3 mg Epinephrine HCl (Adrenalin) 0.3 mg SUBCUT ONETIME ONE Stop: 07/14/18 16:25 Last Admin: 07/14/18 16:58 Dose: 0.3 mg Folic Acid (Folic Acid) 1 mg PO ONETIME ONE Stop: 07/08/18 22:55 Last Admin: 07/08/18 23:27 Dose: 1 mg Folic Acid (Folic Acid) 1 mg PO BEDTIME [facility] Last Admin: 07/10/18 20:51 Dose: 1 mg Multivitamins/Minerals 10 ml/Thiamine HCl 100 mg/ Folic Acid 1 mg/ Sodium Chloride 1,011.2 mls @ 250 mls/hr IV ONETIME ONE Stop: 07/09/18 00:09 Last Admin: 07/08/18 21:16 Dose: 250 mls/hr Magnesium Sulfate 2 gm/ Premix 50 mls @ 50 mls/hr IV ONETIME ONE Stop: 07/09/18 00:24 Last Admin: 07/08/18 23:44 Dose: 50 mls/hr Magnesium Sulfate 2 gm/ Premix 50 mls @ 50 mls/hr IV ONETIME ONE Stop: 07/09/18 08:43 Last Admin: 07/09/18 08:17 Dose: 50 mls/hr Sodium Chloride (Normal Saline) 1,000 mls @ 125 mls/hr IV ASDIRECTED [facility] Last Admin: 07/10/18 13:28 Dose: 125 mls/hr Vancomycin HCl 1,500 mg/ (Sodium Chloride) 500 mls @ 1,000 mls/hr IV Q8H [facility] Vancomycin HCl 1,500 mg/ (Sodium Chloride) 500 mls @ 250 mls/hr IV Q8H [facility] Last Admin: 07/09/18 15:19 Dose: 250 mls/hr Iopamidol (Isovue Multipack-370 (76%)) 100 ml IVPUSH ONETIME [facility] Stop: 07/14/18 14:33 Last Admin: 07/14/18 14:39 Dose: 100 ml Ketorolac Tromethamine (Toradol) 30 mg IVPUSH ONETIME ONE Stop: 07/08/18 18:33 Last Admin: 07/08/18 18:46 Dose: 30 mg Lisinopril (Prinivil) 40 mg PO DAILY [facility] Last Admin: 07/14/18 08:59 Dose: 40 mg Loperamide HCl (Imodium) 2 mg PO Q6H PRN PRN Reason: Diarrhea Last Admin: 07/11/18 20:55 Dose: 2 mg Lorazepam (Ativan) 1 mg IVPUSH Q4H PRN; Protocol PRN Reason: Anxiety Last Admin: 07/08/18 23:36 Dose: 1 mg Methylprednisolone Sodium Succinate (Solu-Medrol) 125 mg IVPUSH Q8H [facility] Last Admin: 07/14/18 12:15 Dose: 125 mg Metronidazole (Metronidazole) 500 mg PO Q8H [facility] Last Admin: 07/14/18 11:01 Dose: 500 mg Multivitamins/Minerals/Vitamin C (Tab-A-Marva) 1 tab PO BEDTIME [facility] Last Admin: 07/10/18 20:51 Dose: 1 tab Nicotine (Habitrol) 14 mg TRDERM Q24H [facility] Last Admin: 07/14/18 10:59 Dose: 14 mg Nitroglycerin (Nitro-Bid 2%) 1 gm TOP ONETIME ONE Stop: 07/08/18 18:33 Last Admin: 07/08/18 21:15 Dose: Not Given Ondansetron HCl (Zofran) 4 mg IVPUSH Q3H PRN PRN Reason: Nausea Last Admin: 07/10/18 00:26 Dose: 4 mg Pantoprazole Sodium (Protonix Iv) 40 mg IVPUSH Q12HR [facility] Pantoprazole Sodium (Protonix Iv) 40 mg IVPUSH Q12HR [facility] Last Admin: 07/14/18 08:57 Dose: 40 mg Potassium Chloride (Klor-Con M20) 40 meq PO ONETIME ONE Stop: 07/08/18 20:08 Last Admin: 07/08/18 20:20 Dose: 40 meq Potassium Chloride (Klor-Con M20) 40 meq PO ONETIME ONE Stop: 07/08/18 23:06 Last Admin: 07/08/18 23:27 Dose: 40 meq Potassium Chloride (Klor-Con M20) 40 meq PO ONETIME ONE Stop: 07/09/18 07:45 Last Admin: 07/09/18 08:18 Dose: 40 meq Thiamine HCl (Vitamin B-1) 100 mg PO ONETIME ONE Stop: 07/08/18 22:55 Last Admin: 07/08/18 23:27 Dose: 100 mg Thiamine HCl (Vitamin B-1) 100 mg PO BEDTIME [facility] Last Admin: 07/10/18 20:51 Dose: 100 mg Tramadol HCl (Ultram) 50 mg PO ONETIME ONE Stop: 07/10/18 18:52 Last Admin: 07/10/18 19:24 Dose: 50 mg - Exam General: Alert, Oriented, Cooperative Lungs: Clear to Auscultation, Normal Respiratory Effort Cardiovascular: Regular Rate, Regular Rhythm GI/Abdominal Exam: Soft, Non-Tender Psy/Mental Status: Alert, Normal Affect. No: Agitated Physical Findings Comments:: slight bilateral upper lip swelling but markedly improved compared to yesterday. - Problem List & Annotations (1) Alcoholism /alcohol abuse SNOMED Code(s): 7797158 Code(s): F10.20 - ALCOHOL DEPENDENCE, UNCOMPLICATED Status: Acute Current Visit: Yes (2) C. difficile colitis SNOMED Code(s): 726924535 Code(s): A04.72 - ENTEROCOLITIS D/T CLOSTRIDIUM DIFFICILE, NOT SPCF RECUR Status: Acute Current Visit: Yes (3) Homelessness SNOMED Code(s): 95360733 Code(s): Z59.0 - HOMELESSNESS Status: Acute Current Visit: Yes (4) Heme positive stool SNOMED Code(s): 88694849, 651784115 Code(s): R19.5 - OTHER FECAL ABNORMALITIES Status: Acute Current Visit: Yes (5) Alcoholic gastritis SNOMED Code(s): 9866118 Code(s): K29.20 - ALCOHOLIC GASTRITIS WITHOUT BLEEDING Status: Acute Current Visit: Yes (6) Angioedema SNOMED Code(s): 23531388 Code(s): T78.3XXA - ANGIONEUROTIC EDEMA, INITIAL ENCOUNTER Status: Acute Current Visit: Yes - Problem List Review Problem List Initiated/Reviewed/Updated: Yes - My Orders Last 24 Hours: My Active Orders 07/14/18 12:45 diphenhydrAMINE [Benadryl] 25 mg IVPUSH Q6H 07/14/18 16:30 methylPREDNISolone Sod Succ [Solu-MEDROL] 125 mg IVPUSH Q6H 07/14/18 18:14 Transfer Patient (Change bed) [ADT] Routine 07/14/18 18:19 Ketorolac [Toradol] 30 mg IVPUSH Q8H PRN 07/15/18 09:14 OCCULT BLOOD DIAGNOSTIC [OP] Routine 07/16/18 05:11 CBC WITH AUTO DIFF [HEME] AM 07/17/18 05:11 CBC WITH AUTO DIFF [HEME] AM - Plan Plan:: 1. Diarrhea secondary to C.diff infection continue oral vancomycin 125 mg qid. His stool was negative for Shiga/camp. Continue imodium to help control number of bowel movements. 2. Anemia with positive hemoccult- His hemoglobin was stable overnight. Continue PPI BID. His bleeding is likely from gastritis secondary to alcohol use. He will need to follow up with GI as an outpatient. 3. Alcohol Intoxication with impending withdrawal- CIWA and Ativan protocol. Continue on multivitamin, folic acid, and thiamine. 07/13/18 Add flagyl po address disposition with help of discharge planning tomorrow. I have discussed the possibility of him going to [facility] to be with his mother if transportation might be arranged. continued monitoring. ativan prn for muscle cramps. Blade Bailey MD 07/14/2018 I spoke to Tresa pharmacist. We decided to stop flagyl, as it was recently started and to also stop lisinopril. there is no current airway compromise. Must consider some local effect such as insect sting as just the right side of the face is affected. CT with IV contrast abdomen and pelvis repeat stool occult blood Blade Bailey MD 07/15/2018 to floor fecal occult blood to be repeated he requests to see instructor substitute cosmetology today monitor for 24 hours for recurrence anticipated discharge tomorrow. Blade Bailey MD
[2018-07-15] MEDS ORDERED: diphenhydrAMINE 50 MG/ML SDV IVPUSH PRN (17:42)
--- NOTE | 2018-07-15 17:43 | PCM.SN ---
- Free Text/Narrative Note: doing well. stop solumedrol Blade Bailey MD
[2018-07-15] MEDS: Melatonin 3 MG Tab PO SCH (23:27)
[2018-07-16] MEDS: Vancomycin 25 MG/ML Compounding Kit PO SCH ×2 (06:17→12:08)
[2018-07-16] MEDS: Thiamine 100 MG Tab PO SCH (08:09)
[2018-07-16] MEDS: Multivitamin Tab PO SCH (08:09)
[2018-07-16] MEDS: Folic Acid 1 MG Tab PO SCH (08:09)
--- NOTE | 2018-07-16 12:27 | PCM.DCSUM1 ---
Discharge Summary - Hospital Course Brief History: He was admitted with chest pain and diarrhea. - Discharge Data Discharge Date: 07/16/18 Discharge Disposition: Home, Self-Care 01 Condition: Stable - Discharge Diagnosis/Problem(s) (1) Alcoholism /alcohol abuse SNOMED Code(s): 1428725 ICD Code: F10.20 - ALCOHOL DEPENDENCE, UNCOMPLICATED Status: Acute Current Visit: Yes (2) C. difficile colitis SNOMED Code(s): 495837053 ICD Code: A04.72 - ENTEROCOLITIS D/T CLOSTRIDIUM DIFFICILE, NOT SPCF RECUR Status: Acute Current Visit: Yes (3) Homelessness SNOMED Code(s): 57449138 ICD Code: Z59.0 - HOMELESSNESS Status: Acute Current Visit: Yes (4) Heme positive stool SNOMED Code(s): 24736942, 437704708 ICD Code: R19.5 - OTHER FECAL ABNORMALITIES Status: Acute Current Visit: Yes (5) Alcoholic gastritis SNOMED Code(s): 0569958 ICD Code: K29.20 - ALCOHOLIC GASTRITIS WITHOUT BLEEDING Status: Acute Current Visit: Yes (6) Angioedema SNOMED Code(s): 28894604 ICD Code: T78.3XXA - ANGIONEUROTIC EDEMA, INITIAL ENCOUNTER Status: Acute Current Visit: Yes - Patient Summary/Data Hospital Course: His stool showed clostridium dificile. He was started on vancomycin 125 mg qid po. Flagyl was later started as the resolution of his diarrhea was postponed. He had a positive fecal hemocult but did not show appreciable decrease in Hg during the hospital stay. He was also noted to be acutely intoxicated with alcohol level of 296 on admission. His electrolyte and Magnesium deficiencies were corrected. He was given supportive care. On July 15 he developed lip swelling c/w angioedema. His COLBY was stopped. In addition we stopped his flagyl and nicotine patch. He was started on solumedrol, benadryl and was given two doses of subcutaneous epinephrine. He had no airway compromise noted but was monitored inthe ICU as a precaution. His lips swelling is nearly completely resolved at discharge. He was advised regarding avoiding COLBY inhibitors inthe future due to risk of angioedema He was advised regarding a follow up for heme positive stool and for a follow up for adrenal nodule on CT scanning with further imaging ( possible MRI) pending. AT discharge he is feeling much better. He is homeless and sr. social media & mobile manager and recenterer have worked on maximizing community resources. - Discharge Plan Prescriptions/Med Rec: Pantoprazole Sodium [Protonix] 40 mg PO DAILY #7 tablet. predniSONE [Prednisone] 20 mg PO DAILY #4 tablet Vancomycin [First-Vancomycin 25 Compounding Kit] 125 mg PO QID #28 dose Home Medications: Home Meds Pantoprazole Sodium [Protonix] 40 mg PO DAILY #7 tablet. 07/16/18 [Rx] Vancomycin [First-Vancomycin 25 Compounding Kit] 125 mg PO QID #28 dose [Rx] predniSONE [Prednisone] 20 mg PO DAILY #4 tablet 07/16/18 [Rx] Patient Handouts: Chest Wall Pain, [id number], Clostridium Difficile Infection, [id number] Referrals: Mary Ann Che DO [Resident] - 07/25/18 2:30 pm - Discharge Summary/Plan Comment DC Time >30 min.: Yes - Patient Data Vitals - Most Recent: Last Vital Signs Temp 97.8 F 07/16/18 12:00 Pulse 94 07/16/18 12:00 Resp 18 07/16/18 12:00 BP 141/90 H 07/16/18 12:00 Pulse Ox 96 07/16/18 12:00 Weight - Most Recent: 88.088 kg I&O - Last 24 hours: Intake & Output 07/15/18 07/16/18 07/16/18 22:59 06:59 14:59 Intake Total 220 442 0117 Output Total 500 750 Balance 804 082 9341 Lab Results - Last 24 hrs: Laboratory Results - last 24 hr 07/16/18 Range/Units 05:21 WBC 8.00 (4.0-11.0) K/uL RBC 3.31 L (4.50-5.90) M/uL Hgb 10.3 L (13.0-17.0) g/dL Hct 31.2 L (38.0-50.0) % MCV 94.3 (80.0-98.0) fL MCH 31.1 (27.0-32.0) pg MCHC 33.0 (31.0-37.0) g/dL RDW Std Deviation 58.8 (28.0-62.0) fl RDW Coeff of Michelle 17 H (11.0-15.0) % Plt Count 293 (150-400) K/uL MPV 9.50 (7.40-12.00) fL Neut % (Auto) 68.6 (48.0-80.0) % Lymph % (Auto) 17.5 (16.0-40.0) % Robeson % (Auto) 13.8 (0.0-15.0) % Eos % (Auto) 0.0 (0.0-7.0) % Baso % (Auto) 0.1 (0.0-1.5) % Neut # (Auto) 5.5 (1.4-5.7) K/uL Lymph # (Auto) 1.4 (0.6-2.4) K/uL Robeson # (Auto) 1.1 H (0.0-0.8) K/uL Eos # (Auto) 0.0 (0.0-0.7) K/uL Baso # (Auto) 0.0 (0.0-0.1) K/uL Nucleated RBC % 0.0 /100WBC Nucleated RBCs # 0 K/uL GT Results - Last 24 hrs: Microbiology 07/15/18 12:36 Stool Occult Blood (GT) - Final Stool / Feces POSITIVE OCCULT BLOOD Med Orders - Current: Current Medications Acetaminophen (Tylenol) 650 mg PO Q4H PRN PRN Reason: Pain (Mild 1-3)/fever Last Admin: 07/14/18 12:48 Dose: 650 mg Diphenhydramine HCl (Benadryl) 25 mg IVPUSH Q6H PRN PRN Reason: Other Folic Acid (Folic Acid) 1 mg PO DAILY [facility] Last Admin: 07/16/18 08:09 Dose: 1 mg Ketorolac Tromethamine (Toradol) 30 mg IVPUSH Q8H PRN PRN Reason: Pain Lorazepam (Ativan) 0 mg PO Q4H PRN; Protocol PRN Reason: Withdrawal Symptoms Lorazepam (Ativan) 0 mg IVPUSH Q4H PRN; Protocol PRN Reason: Withdrawal Symptoms Last Admin: 07/14/18 13:00 Dose: 1 mg Lorazepam (Ativan) 1 mg PO Q6H PRN PRN Reason: Anxiety Last Admin: 07/15/18 22:50 Dose: 1 mg Melatonin (Melatonin) 9 mg PO BEDTIME [facility] Last Admin: 07/15/18 23:27 Dose: 9 mg Multivitamins/Minerals/Vitamin C (Tab-A-Marva) 1 tab PO DAILY [facility] Last Admin: 07/16/18 08:09 Dose: 1 tab Thiamine HCl (Vitamin B-1) 100 mg PO DAILY [facility] Last Admin: 07/16/18 08:09 Dose: 100 mg Vancomycin HCl (Pharmacy To Dose - Vancomycin) 1 dose .XX ASDIRECTED [facility] Vancomycin HCl (First-Vancomycin 25 Compounding Kit) 125 mg PO QID [facility] Last Admin: 07/16/18 12:08 Dose: 5 ml Discontinued Medications Diphenhydramine HCl (Benadryl) 25 mg IVPUSH Q6H [facility] Last Admin: 07/15/18 12:12 Dose: 25 mg Enoxaparin Sodium (Lovenox) 40 mg SUBCUT Q24H [facility] Last Admin: 07/10/18 10:28 Dose: 40 mg Epinephrine HCl (Adrenalin) 0.3 mg SUBCUT ONETIME ONE Stop: 07/14/18 12:37 Last Admin: 07/14/18 13:07 Dose: 0.3 mg Epinephrine HCl (Adrenalin) 0.3 mg SUBCUT ONETIME ONE Stop: 07/14/18 16:25 Last Admin: 07/14/18 16:58 Dose: 0.3 mg Folic Acid (Folic Acid) 1 mg PO ONETIME ONE Stop: 07/08/18 22:55 Last Admin: 07/08/18 23:27 Dose: 1 mg Folic Acid (Folic Acid) 1 mg PO BEDTIME [facility] Last Admin: 07/10/18 20:51 Dose: 1 mg Multivitamins/Minerals 10 ml/Thiamine HCl 100 mg/ Folic Acid 1 mg/ Sodium Chloride 1,011.2 mls @ 250 mls/hr IV ONETIME ONE Stop: 07/09/18 00:09 Last Admin: 07/08/18 21:16 Dose: 250 mls/hr Magnesium Sulfate 2 gm/ Premix 50 mls @ 50 mls/hr IV ONETIME ONE Stop: 07/09/18 00:24 Last Admin: 07/08/18 23:44 Dose: 50 mls/hr Magnesium Sulfate 2 gm/ Premix 50 mls @ 50 mls/hr IV ONETIME ONE Stop: 07/09/18 08:43 Last Admin: 07/09/18 08:17 Dose: 50 mls/hr Sodium Chloride (Normal Saline) 1,000 mls @ 125 mls/hr IV ASDIRECTED [facility] Last Admin: 07/10/18 13:28 Dose: 125 mls/hr Vancomycin HCl 1,500 mg/ (Sodium Chloride) 500 mls @ 1,000 mls/hr IV Q8H [facility] Vancomycin HCl 1,500 mg/ (Sodium Chloride) 500 mls @ 250 mls/hr IV Q8H [facility] Last Admin: 07/09/18 15:19 Dose: 250 mls/hr Iopamidol (Isovue Multipack-370 (76%)) 100 ml IVPUSH ONETIME STA Stop: 07/14/18 14:33 Last Admin: 07/14/18 14:39 Dose: 100 ml Ketorolac Tromethamine (Toradol) 30 mg IVPUSH ONETIME ONE Stop: 07/08/18 18:33 Last Admin: 07/08/18 18:46 Dose: 30 mg Lisinopril (Prinivil) 40 mg PO DAILY [facility] Last Admin: 07/14/18 08:59 Dose: 40 mg Loperamide HCl (Imodium) 2 mg PO Q6H PRN PRN Reason: Diarrhea Last Admin: 07/11/18 20:55 Dose: 2 mg Lorazepam (Ativan) 1 mg IVPUSH Q4H PRN; Protocol PRN Reason: Anxiety Last Admin: 07/08/18 23:36 Dose: 1 mg Methylprednisolone Sodium Succinate (Solu-Medrol) 125 mg IVPUSH Q8H [facility] Last Admin: 07/14/18 12:15 Dose: 125 mg Methylprednisolone Sodium Succinate (Solu-Medrol) 125 mg IVPUSH Q6H [facility] Last Admin: 07/15/18 16:17 Dose: 125 mg Metronidazole (Metronidazole) 500 mg PO Q8H [facility] Last Admin: 07/14/18 11:01 Dose: 500 mg Multivitamins/Minerals/Vitamin C (Tab-A-Marva) 1 tab PO BEDTIME [facility] Last Admin: 07/10/18 20:51 Dose: 1 tab Nicotine (Habitrol) 14 mg TRDERM Q24H [facility] Last Admin: 07/14/18 10:59 Dose: 14 mg Nitroglycerin (Nitro-Bid 2%) 1 gm TOP ONETIME ONE Stop: 07/08/18 18:33 Last Admin: 07/08/18 21:15 Dose: Not Given Ondansetron HCl (Zofran) 4 mg IVPUSH Q3H PRN PRN Reason: Nausea Last Admin: 07/10/18 00:26 Dose: 4 mg Pantoprazole Sodium (Protonix Iv) 40 mg IVPUSH Q12HR [facility] Pantoprazole Sodium (Protonix Iv) 40 mg IVPUSH Q12HR [facility] Last Admin: 07/14/18 08:57 Dose: 40 mg Potassium Chloride (Klor-Con M20) 40 meq PO ONETIME ONE Stop: 07/08/18 20:08 Last Admin: 07/08/18 20:20 Dose: 40 meq Potassium Chloride (Klor-Con M20) 40 meq PO ONETIME ONE Stop: 07/08/18 23:06 Last Admin: 07/08/18 23:27 Dose: 40 meq Potassium Chloride (Klor-Con M20) 40 meq PO ONETIME ONE Stop: 07/09/18 07:45 Last Admin: 07/09/18 08:18 Dose: 40 meq Thiamine HCl (Vitamin B-1) 100 mg PO ONETIME ONE Stop: 07/08/18 22:55 Last Admin: 07/08/18 23:27 Dose: 100 mg Thiamine HCl (Vitamin B-1) 100 mg PO BEDTIME [facility] Last Admin: 07/10/18 20:51 Dose: 100 mg Tramadol HCl (Ultram) 50 mg PO ONETIME ONE Stop: 07/10/18 18:52 Last Admin: 07/10/18 19:24 Dose: 50 mg
== END 2018-07-16 13:26 | disposition home or self-care (01) | DRG 897 ==
LOC: MW.ED 18:30 → MW.MS 20:37 → OBSVTOIN 07-09 19:23 → MW.MS 07-10 03:34 → MW.ICU 07-14 18:45
PROVIDERS: ADMIT Internal Medicine; ATTEND Internal Medicine
DX: F10.229 Alcohol dependence with intoxication, unspecified (principal); A04.72 Enterocolitis due to Clostridium difficile, not specified as recurrent; Y90.8 Blood alcohol level of 240 mg/100 ml or more; R07.9 Chest pain, unspecified; E87.6 Hypokalemia; E83.42 Hypomagnesemia; R19.5 Other fecal abnormalities; K29.20 Alcoholic gastritis without bleeding; T78.3XXA Angioneurotic edema, initial encounter; T46.4X5A Adverse effect of angiotensin-converting-enzyme inhibitors, initial encounter; Y92.230 Patient room in hospital as the place of occurrence of the external cause; I10 Essential (primary) hypertension; Z59.0 Homelessness; Z79.899 Other long term (current) drug therapy; F17.210 Nicotine dependence, cigarettes, uncomplicated
CPT/HCPCS: 36415; 71045; 71045-26; 74177; 74177-26; 80048; 80053; 81001; 82272; 82728; 83550; 83630; 83735; 83880; 84100; 84484; 85014; 85018; 85025; 87046; 87081; 87324; 87880-QW; 87899; 93005; 96361; 96365; 96367; 96372; 96375; 96376; 99284; 99285-25; A9270-GY; C9113; G0378; G0480; J0171; J1200; J1650; J1885; J2060; J2405; J2930; J3370; J3411; J3475; J7040; Q9967